=== PATIENT | male | born 1950 | race Caucasian/White ===

== ENCOUNTER 2017-03-14 14:51 | Inpatient (IN) | payer BC ==
[~2017-03-14] VITALS: Ht 175.3 cm; Wt 106.1 kg
[~2017-03-14 14:51] MED LIST: GLC500 PO; LISI20TA PO
[2017-03-14 16:18] LABS: BASO % 0.5 %; BASO ABS # 0.02 K/uL (0-0.2); COMPLETE YES; EOS % 2.5 %; HEMATOCRIT 45.1 % (42-52); LYMPH % 25.6 %; LYMPH ABS # 1.13 K/uL (1.2-3.4); MEAN CELL VOLUME 81.9 fL (80-100); MEAN CORPUSCULAR HEMOGLOBIN 29.2 pg (25-34); MEAN CORPUSCULAR HGB CONC 35.7 g/dl (32-36); MEAN PLATELET VOLUME 10.5 fL (7.4-10.4); NEUT % 59.4 %; PLATELET COUNT 200 K/uL (130-400); RED BLOOD COUNT 5.51 M/uL (4.7-6.1); WHITE BLOOD COUNT 4.42 K/uL (4.8-10.8)
--- NOTE | 2017-03-14 16:22 | EMERGENCY ROOM VISIT NOTE ---
History Report prepared by Demario: Zaynab Deleon Under the Supervision of: Dr. Raquel Fenton M.D. First contact with patient: 16:03 Chief Complaint: IRREGULAR HEARTBEAT Stated Complaint: HEART IS IREGULAR, TALKING/BREATHING DIFFICULT Nursing Triage Summary: triage note: reports being seen at [facility] told to come here to see a cardiology reports pt has been loosing weight without effort and has been dizzy History of Present Illness The patient is a 66 year old male who presents to the Emergency Room with complaints of an intermittent irregular heat beat starting 2 weeks BUMBOATER. The patient states that while he was at the [facility] theatre 2 weeks ago he was sitting and felt a "hollow" feeling in his chest and checked his fit bit and it said his heart rate was 130 bpm while he was resting. The patient states that the feeling passed but it has occurred intermittently throughout the last two weeks. He states that along with his irregular heart rate he has had more shortness of breath. He states that he has history of bronchitis and feels like he has bronchitis like symptoms of a cough. He states that he has also had shortness of breath that is worse with exertion. He states that yesterday he was able to do yard work but states he felt short of breath but he denies any feelings of heart palpations during the exertion. His states that while the patient was walking through the parking deck on flat surface, he was out of breath. The patient denies any history of smoking. He states that he takes Lisinopril and Zyrtec daily but denies any other medications daily. The patient states that when at [facility] today he was on the heart rate monitor his EKG was abnormal, which is when the patient was refereed to come to the ED for further examination. Source of History: patient, spouse/significant other () Onset: 2 weeks BUMBOATER Position: chest Timing: intermittent Associated Symptoms: + SOB Note: Associated symptoms: increased heart rate at rest. Review of Systems See HPI for pertinent positives & negatives. A total of 10 systems reviewed and were otherwise negative. Past Medical & Surgical Medical Problems: (1) Bronchitis (2) Hypertension (3) Pneumonia (4) Pulmonary embolism, bilateral Family History Cancer Diabetes mellitus Hypertension Social History Smoking Status: Never Smoker Marital Status: Housing Status: lives with significant other Occupation Status: employed Current/Historical Medications Scheduled Cetirizine (Zyrtec), 10 MG PO DAILY Glipizide (Glucotrol), 0.5 TAB PO BID Lisinopril/Hctz (Zestoretic 20MG/12.5MG), 1 TAB PO DAILY Metformin Hcl (Glucophage), 750 MG PO DAILY Warfarin Sod (Jantoven), DAILY Allergies Coded Allergies: POLLEN (Verified Allergy, Intermediate, ITCHY EYES, RUNNY NOSE, SNEEZING, 03/14/17) Avocado (Verified Adverse Reaction, Intermediate, GI UPSET, 03/14/17) Physical Exam Vital Signs Date Time Temp Pulse Resp B/P Pulse Ox O2 Delivery O2 Flow Rate FiO2 03/14/17 19:33 104 03/14/17 18:39 92 Room Air 03/14/17 18:39 76 20 153/80 92 Room Air 03/14/17 17:14 73 20 131/71 93 Room Air 03/14/17 16:24 79 03/14/17 15:25 37.1 86 18 148/84 91 Room Air Physical Exam Vital signs reviewed. General: Well-appearing obese male, noted to be borderline hypoxic on room air. HEENT: No scleral icterus, PERRLA, neck supple. Atraumatic. Cardiovascular: Regular rate and rhythm, no extra sounds. Pulmonary: Clear to auscultation bilaterally, normal work of breathing. Abdomen: Soft, nontender, nondistended, positive bowel sounds. Musculoskeletal: Atraumatic, no peripheral edema. Neurologic: Patient awake alert and oriented x 3, full strength in all 4 extremities. Cranial nerves 2 through 12 grossly intact. Skin: Warm, dry, no rash Medical Decision & Procedures ER Provider Diagnostic Interpretation: X-ray results as stated below per interpretation by me and the radiologist: CHEST ONE VIEW PORTABLE CLINICAL HISTORY: Tachycardia. Shortness of breath. COMPARISON STUDY: Chest radiograph May 14, 2015. FINDINGS: Lung volumes are normal. Lungs are clear. There is no pneumothorax or pleural effusion. Cardiomediastinal silhouette is stable. Pulmonary vascularity is normal. IMPRESSION: No acute cardiopulmonary findings. Electronically signed by: John Spicer M.D. 03/14/2017 4:35 PM Dictated Date/Time: 03/14/2017 4:[address] results as stated below per my review and radiologist interpretation: CT ANGIOGRAM OF THE CHEST CLINICAL HISTORY: Dyspnea. Atypical chest pain. COMPARISON STUDY: Chest x-ray dated 03/14/2017. TECHNIQUE: Following the IV administration of 112 cc of Optiray 320, CT angiogram of the chest was performed from the upper abdomen to the thoracic inlet utilizing the pulmonary embolus protocol. Images are reviewed in the axial, sagittal, and coronal planes. 3-D MIPS images are created and assessed. IV contrast was administered without complication. CT DOSE: 682.18 mGy.cm FINDINGS: Thyroid: Imaged portions of the thyroid gland are normal in size and attenuation. Thoracic aorta: The thoracic aorta is normal in caliber and demonstrates standard 3-vessel arch anatomy. No dissection is seen. Pulmonary vasculature: The pulmonary trunk is normal in caliber. There are filling defects consistent with pulmonary emboli identified within the distal right main pulmonary artery. Emboli extend into the right upper, right middle, and right lower lobar pulmonary branches, reaching segmental and subsegmental levels. Pulmonary and was also seen within the distal left main pulmonary artery. This extends into the left upper and left lower lobar pulmonary arteries into segmental and subsegmental branches. Heart: The heart is mildly enlarged and without pericardial effusion. There are scattered coronary artery calcifications. Lungs and pleural spaces: Evaluation of the lung parenchyma is modestly degraded by motion artifact. Mild centrilobular and paraseptal emphysematous changes are observed. The trachea and central airways are clear. There is no airspace consolidation or pleural effusion. Scattered calcified granulomas are observed. There is a 4 mm pleural-based nodule in the right lower lobe along the major fissure seen on image 141. A 3 mm right lower lobe nodule is identified on image #130. Mediastinum: There is no mediastinal lymphadenopathy. Kelly: Clear. Axillae: There is no axillary lymphadenopathy. Upper abdomen: A cyst is partially visualized in the upper pole of left kidney. There is a tiny hiatal hernia diverticula are noted in the partially imaged left colon. Skeletal structures: The skeletal structures are osteopenic. Degenerative change is seen in the shoulders and thoracic spine. No lytic or blastic bony lesions are seen. IMPRESSION: 1. Extensive bilateral pulmonary emboli as above. 2. Cardiomegaly and mild emphysema. 3. No airspace consolidation or pleural effusion is identified. 4. There are 2 nodules in the right lower lobe measuring up to 4 mm. These can be followed as per the Fleischner criteria if clinically warranted. See below. 5. Additional findings as above. Please refer to below summary of Fleischner criteria recommendations for follow-up of incidental CT nodules (Jermaine Ashton, Guidelines for management of small pulmonary nodules detected on CT scans: A statement from the Fleischner Society, Radiology 237: [phone].) SOLID NODULES Solitary nodule size: <6 mm * low risk patients: no follow-up needed * high risk patients: optional CT at 12 months Solitary nodule size: 6-8 mm * low risk patients: follow-up at 6-12 months, then consider further follow-up at 18-24 months * high risk patients: initial follow-up CT at 6-12 months and then at 18-24 months if no change Solitary nodule size: >8 mm * either low or high risk patients - consider follow-up CT at 3 months, and/or CT-PET, and/or biopsy Multiple nodules size: <6 mm * low risk patients: no routine follow-up * high risk patients: optional CT at 12 months Multiple nodules size: 6-8 mm * low risk patients: follow-up at 3-6 months, then consider further follow-up at 18-24 months * high risk patients: follow-up at 3-6 months, then at 18-24 months if no change Multiple nodules size: >8 mm * low risk patients: follow-up at 3-6 months, then consider further follow-up at 18-24 months * high risk patients: follow-up at 3-6 months, then at 18-24 months if no change Note: newly detected indeterminate nodule in persons 35 years of age or older. * low risk patients: minimal or absent history of smoking and/or other known risk factors * high risk patients: history of smoking or of other known risk factors (e.g. first degree relative with lung cancer, or exposure to asbestos, radon, uranium) * if a nodule up to 8 mm is partly solid or is ground glass further follow-up is required after 24 months to exclude possible slow growing adenocarcinoma (AIXA) SUBSOLID NODULES Solitary pure ground-glass nodule * nodule size <6 mm - no CT follow-up required * nodule size >=6 mm - follow-up CT at 6-12 months, then every 2 years until 5 years Solitary part-solid nodule * nodule size <6 mm - no CT follow-up required * nodule size >=6 mm - follow-up CT at 3-6 months. If unchanged, and solid component remains <6 mm, then annual follow-up for 5 years Multiple subsolid nodules * nodule size <6 mm - follow-up CT at 3-6 months, consider further follow-up at 2 and 4 years if stable * nodule size >=6 mm - follow-up CT at 3-6 months, subsequent management based on the most suspicious nodule(s) Electronically signed by: Singh Allen M.D. 03/14/2017 6:53 PM Dictated Date/Time: 03/14/2017 6:48 PM Laboratory Results Test 03/14/17 16:00 03/14/17 16:30 03/14/17 17:59 03/14/17 19:33 D-Dimer 1020 ug/L FEU (0-500) Estimated Average Glucose 341 mg/dl Hemoglobin A1c 13.5 % (4.5-5.6) Total Bilirubin 0.4 mg/dl (0.2-1) Direct Bilirubin 0.1 mg/dl (0-0.2) Aspartate Amino Transf (AST/SGOT) 16 U/L (15-37) Alanine Aminotransferase (ALT/SGPT) 32 U/L (12-78) Alkaline Phosphatase 105 U/L (45-117) Pro-B-Type Natriuretic Peptide 163 pg/ml (0-900) Total Protein 6.4 gm/dl (6.4-8.2) Albumin 3.3 gm/dl (3.4-5.0) Beta-Hydroxybutyric Acid 5.26 mg/dL (0.2-2.81) Hepatitis C Antibody Screen NEG (NEG) Bedside Troponin I 0.000 ng/ml (0-0.045) Arterial Blood pH 7.47 (7.35-7.45) Arterial Blood Partial Pressure CO2 34 mmHg (35-46) Arterial Blood Partial Pressure O2 69 mm/Hg (80-95) Arterial Blood HCO3 24 mmol/L (19-24) Arterial Blood Oxygen Saturation 92.9 % (90-95) Arterial Blood Base Excess 0.6 mEq/L (-9-1.8) Arterial Blood Gas Delivery ROOM AIR Laci Test POS (POS) Hexagonal Phase Confirmation Negative (Negative) Protein C Activity 80 % (70-180) Protein S Activity 89 % (70-150) Anti-Thrombin III Activity 104 % activity (80-120) Factor V Leiden Mutation see note Factor V Leiden Interpretation see note Factor V Leiden Reviewed By see note Prothrombin Gene Mutation see note Prothrombin Gene Mutation Comment see note Prothrombin Mutation Reviewed By see note Homocysteine 9.5 UMOL/L (<11.4) Pfok-gbzx-8-Glycoprotein I IgG Ab <9 SGU (<=20) Qavt-ihaf-0-Glycoprotein I IgA Ab <9 CLOTILDE (<=20) Nqpz-drzx-4-Glycoprotein I IgM Ab <9 SMU (<=20) Anti-Cardiolipin IgG Antibody <14 GPL (< = 14) Anti-Cardiolipin IgA Antibody <11 APL (< = 11) Anti-Cardiolipin IgM Antibody <12 MPL (< = 12) Laboratory results per my review. Medications Administered Medications (Trade) Dose Ordered Sig/Wang Route Start Time Stop Time Status Last Admin Dose Admin Sodium Chloride 1,000 ml @ 200 mls/hr Q5H STAT IV 03/14/17 16:52 03/14/17 21:03 DC 03/14/17 17:09 200 MLS/HR Sodium Chloride (Nss 1000ml) 1,000 ml @ 999 mls/hr Q1H1M STAT IV 03/14/17 16:52 03/14/17 17:52 DC 03/14/17 17:09 999 MLS/HR Insulin Human Regular (novoLIN-R U-100 PER UNIT) 10 units NOW STAT SC 03/14/17 16:53 03/14/17 16:54 DC 03/14/17 17:09 10 UNITS ECG Indication: palpitations Rate (beats per minute): 85 Rhythm: normal sinus Findings: nonspecific-ST abn (Inferior, lateral) ED Course 1607: Past medical records reviewed. The patient was evaluated in room B11B. A complete history and physical examination was performed. 1627: I discussed the case with Dr. Mitchell [facility]. He states that while the patient was examined earlier today that the patient had SVT at 180 bpm while resting and broke into sinus rhythm in front of him. He states that he sent the patient to the ED because he also had complains of chest discomfort. swelling of the extremities and low exercise shortness of breath. 1652: Ordered Sodium Chloride 1,000 ml @ 999 mls/hr IV, Sodium Chloride 1,000 ml @ 999 mls/hr IV. 1652: Ordered Insulin Human Regular 10 units SC. 1810: I reevaluated the patient and he was resting comfortably. 1904: I reevaluated the patient and he was in rapid atrial fibrillation. An additional EKG was ordered. 1912: Ordered Lopressor Iv 5 mg IV. 1930: I discussed the case with Dr. Cande DIAZ Hospitalist. He agreed to evaluate the patient for further management and care. Medical Decision The patient is a 66 year old male who presents to the ED with complaints of irregular heartbeat. Differentials include SVT, atrial fibrillation, ACS, metabolic abnormality, dehydration, pneumonia, PE, and CHF. This patient was evaluated and appeared to be in no significant distress. IV access was obtained and laboratory work was drawn. EKG was obtained and reveals a normal sinus rhythm with nonspecific ST changes. Laboratory work reveals negative cardiac enzymes, elevated d-dimer. Chest x-ray was obtained and is negative. CT scan of the chest was performed and is significant for bilateral PE. On telemetry the patient's rhythm seems to change periodically to a rapid atrial fibrillation that spontaneously converts. Patient was ordered metoprolol 5 mg IV. Patient is also found to have a markedly elevated blood sugar for which he was given 10 units of subcutaneous regular insulin. Given the multiple medical issues, he will be evaluated by the hospitalist service for admission and further management. Patient and his were informed of the findings/plan and agree. Consults Time Called: 1619 Consulting Physician: Dr. Stephen Lopez [facility] Returned Call: 1626 I discussed the case with Dr. Mitchell [place] [facility]. He states that while the patient was examined earlier today that the patient had SVT at 180 bpm while resting and broke into sinus rhythm in front of him. He states that he sent the patient to the ED because he also had complains of chest discomfort. swelling of the extremities and low exercise shortness of breath. Additional Consults: Time Called: 1900 Consulted Physician: Dr. Cande DIAZ Hospitalist Returned Call: 1930 Additional Comments: I discussed the case with Dr. Cande DIAZ Hospitalist. He agreed to evaluate the patient for further management and care. Impression Primary Impression: Bilateral pulmonary embolism Additional Impressions: Rapid atrial fibrillation Hyperglycemia Scribe Attestation The scribe's documentation has been prepared under my direction and personally reviewed by me in its entirety. I confirm that the note above accurately reflects all work, treatment, procedures, and medical decision making performed by me. Departure Information Dispostion Being Evaluated By Hospitalist Referrals Kimberly Vidal M.D. (PCP) Patient Instructions My [facility] Problem Qualifiers
--- NOTE | 2017-03-14 16:36 | DIAGNOSTIC IMAGING REPORT ---
CHEST ONE VIEW PORTABLE CLINICAL HISTORY: Tachycardia. Shortness of breath. COMPARISON STUDY: Chest radiograph May 14, 2015. FINDINGS: Lung volumes are normal. Lungs are clear. There is no pneumothorax or pleural effusion. Cardiomediastinal silhouette is stable. Pulmonary vascularity is normal. IMPRESSION: No acute cardiopulmonary findings. Electronically signed by: John Spicer M.D. 03/14/2017 4:35 PM Dictated Date/Time: 03/14/2017 4:26 PM
[2017-03-14 16:44] LABS: CALCIUM 8.5 mg/dl (8.5-10.1); CKMB/CK RATIO 1.8 (0-3.0); CREATININE 1.1 mg/dl (0.60-1.40); MAGNESIUM 1.9 mg/dl (1.8-2.4); POTASSIUM 3.9 mmol/L (3.5-5.1)
[2017-03-14] MEDS ORDERED: SODIUM CHLORIDE 0.9% 1000ML 1,000 ML IV STA ×2 (16:52)
[2017-03-14] MEDS ORDERED: NovoLIN-R INSULIN PER UNIT CHARGE SC STA (16:53)
[2017-03-14 16:54] LABS: BETA-HYDROXYBUTYRATE 5.26 mg/dL (0.2-2.81)
[2017-03-14 18:09] LABS: ALLEN TEST POS (POS); ARTERIAL BLD GAS O2 SATURATION 92.9 % (90-95); ARTERIAL BLOOD GAS BASE EXCESS 0.6 mEq/L (-9-1.8); ARTERIAL BLOOD GAS HCO3 24 mmol/L (19-24); ARTERIAL BLOOD GAS PO2 69 mm/Hg (80-95); ARTERIAL BLOOD GAS pH 7.47 (7.35-7.45); O2 ADMINISTRATION ROOM AIR
[2017-03-14] MEDS ORDERED: OPTIRAY 320 IV PRN (18:15)
--- NOTE | 2017-03-14 18:54 | DIAGNOSTIC IMAGING REPORT ---
CT ANGIOGRAM OF THE CHEST CLINICAL HISTORY: Dyspnea. Atypical chest pain. COMPARISON STUDY: Chest x-ray dated 03/14/2017. TECHNIQUE: Following the IV administration of 112 cc of Optiray 320, CT angiogram of the chest was performed from the upper abdomen to the thoracic inlet utilizing the pulmonary embolus protocol. Images are reviewed in the axial, sagittal, and coronal planes. 3-D MIPS images are created and assessed. IV contrast was administered without complication. CT DOSE: 682.18 mGy.cm FINDINGS: Thyroid: Imaged portions of the thyroid gland are normal in size and attenuation. Thoracic aorta: The thoracic aorta is normal in caliber and demonstrates standard 3-vessel arch anatomy. No dissection is seen. Pulmonary vasculature: The pulmonary trunk is normal in caliber. There are filling defects consistent with pulmonary emboli identified within the distal right main pulmonary artery. Emboli extend into the right upper, right middle, and right lower lobar pulmonary branches, reaching segmental and subsegmental levels. Pulmonary and was also seen within the distal left main pulmonary artery. This extends into the left upper and left lower lobar pulmonary arteries into segmental and subsegmental branches. Heart: The heart is mildly enlarged and without pericardial effusion. There are scattered coronary artery calcifications. Lungs and pleural spaces: Evaluation of the lung parenchyma is modestly degraded by motion artifact. Mild centrilobular and paraseptal emphysematous changes are observed. The trachea and central airways are clear. There is no airspace consolidation or pleural effusion. Scattered calcified granulomas are observed. There is a 4 mm pleural-based nodule in the right lower lobe along the major fissure seen on image 141. A 3 mm right lower lobe nodule is identified on image #130. Mediastinum: There is no mediastinal lymphadenopathy. Kelly: Clear. Axillae: There is no axillary lymphadenopathy. Upper abdomen: A cyst is partially visualized in the upper pole of left kidney. There is a tiny hiatal hernia diverticula are noted in the partially imaged left colon. Skeletal structures: The skeletal structures are osteopenic. Degenerative change is seen in the shoulders and thoracic spine. No lytic or blastic bony lesions are seen. IMPRESSION: 1. Extensive bilateral pulmonary emboli as above. 2. Cardiomegaly and mild emphysema. 3. No airspace consolidation or pleural effusion is identified. 4. There are 2 nodules in the right lower lobe measuring up to 4 mm. These can be followed as per the Fleischner criteria if clinically warranted. See below. 5. Additional findings as above. Please refer to below summary of Fleischner criteria recommendations for follow-up of incidental CT nodules (Jermaine Ashton, Guidelines for management of small pulmonary nodules detected on CT scans: A statement from the Fleischner Society, Radiology 237: [phone].) SOLID NODULES Solitary nodule size: <6 mm * low risk patients: no follow-up needed * high risk patients: optional CT at 12 months Solitary nodule size: 6-8 mm * low risk patients: follow-up at 6-12 months, then consider further follow-up at 18-24 months * high risk patients: initial follow-up CT at 6-12 months and then at 18-24 months if no change Solitary nodule size: >8 mm * either low or high risk patients - consider follow-up CT at 3 months, and/or CT-PET, and/or biopsy Multiple nodules size: <6 mm * low risk patients: no routine follow-up * high risk patients: optional CT at 12 months Multiple nodules size: 6-8 mm * low risk patients: follow-up at 3-6 months, then consider further follow-up at 18-24 months * high risk patients: follow-up at 3-6 months, then at 18-24 months if no change Multiple nodules size: >8 mm * low risk patients: follow-up at 3-6 months, then consider further follow-up at 18-24 months * high risk patients: follow-up at 3-6 months, then at 18-24 months if no change Note: newly detected indeterminate nodule in persons 35 years of age or older. * low risk patients: minimal or absent history of smoking and/or other known risk factors * high risk patients: history of smoking or of other known risk factors (e.g. first degree relative with lung cancer, or exposure to asbestos, radon, uranium) * if a nodule up to 8 mm is partly solid or is ground glass further follow-up is required after 24 months to exclude possible slow growing adenocarcinoma (AIXA) SUBSOLID NODULES Solitary pure ground-glass nodule * nodule size <6 mm - no CT follow-up required * nodule size >=6 mm - follow-up CT at 6-12 months, then every 2 years until 5 years Solitary part-solid nodule * nodule size <6 mm - no CT follow-up required * nodule size >=6 mm - follow-up CT at 3-6 months. If unchanged, and solid component remains <6 mm, then annual follow-up for 5 years Multiple subsolid nodules * nodule size <6 mm - follow-up CT at 3-6 months, consider further follow-up at 2 and 4 years if stable * nodule size >=6 mm - follow-up CT at 3-6 months, subsequent management based on the most suspicious nodule(s) Electronically signed by: Singh Allen M.D. 03/14/2017 6:53 PM Dictated Date/Time: 03/14/2017 6:48 PM
[2017-03-14] MEDS ORDERED: METOPROLOL TARTRATE 1 MG/ML VIAL IV STA (19:13)
[2017-03-14] MEDS ORDERED: METOPROLOL TARTRATE 1 MG/ML VIAL ONE (19:26)
[2017-03-14] MEDS ORDERED: LISI-787 PO (19:32)
[2017-03-14] MEDS ORDERED: IBUP-103 PO (19:32)
[2017-03-14] MEDS ORDERED: CETI10TA84 PO (19:32)
--- NOTE | 2017-03-14 19:44 | History and Physical ---
History & Physical Date & Time of Service: March 14, 2017 at 19:41 Chief Complaint: Heart Is Iregular, Talking/Breathing Difficult Primary Care Physician: Kimberly Vidal M.D. History of Present Illness Source: patient, spouse The patient is a 66 yo male who travelled to [facility] and returned 4 weeks ago without problems. He first became tachycardic at rest up to the 130's 2 weeks ago, and also began with SOB at that time. Since then, his symptoms of SOB and DEVRIES have worsened to the point that he is symptomatic with even a short walk. He has had no previous occurrences of increased heart rate or shortness of breath. He denies any leg cramping or swelling. Past Medical/Surgical History Medical Problems: (1) Bronchitis Status: Resolved (2) Hypertension Status: Chronic (3) Pneumonia Status: Resolved Family History Cancer Diabetes mellitus Hypertension Social History Smoking Status: Never Smoker Smokeless Tobacco Use: No Alcohol Use: none Drug Use: none Marital Status: Housing status: lives with family Occupational Status: employed Multi-Drug Resistant Organisms History of MDRO: No Allergies Coded Allergies: POLLEN (Verified Allergy, Intermediate, ITCHY EYES, RUNNY NOSE, SNEEZING, 03/14/17) Avocado (Verified Adverse Reaction, Intermediate, GI UPSET, 03/14/17) Home Medications Scheduled Cetirizine (Zyrtec), 10 MG PO DAILY Lisinopril/Hctz (Zestoretic 20MG/12.5MG), 1 TAB PO DAILY Scheduled PRN Ibuprofen Tab (Advil), 200-600 MG PO Q4H PRN for Pain Review of Systems Constitutional: No chills, No fatigue, No fever, No problem reported, No sweats , No weakness, No weight loss Eyes: No diplopia, No discharge, No eye pain, No problem reported, No redness, No worsening of vision ENT: No dental problems, No hearing loss, No nasal symptoms, No problem reported, No sore throat, No tinnitus, No trouble swallowing, No unusual epistaxis Respiratory: + dyspnea on exertion, + shortness of breath, No cough, No dyspnea at rest, No hemoptysis, No sputum, No wheezing Cardiovascular: + chest pain, + palpitations, No PND, No claudication, No edema , No orthopnea Abdomen: No GI bleeding, No constipation, No diarrhea, No nausea, No pain, No problem reported, No vomiting Musculoskeletal: No calf pain, No joint pain, No muscle pain, No problem reported, No swelling Genitourinary - Male: No dysuria, No hematuria, No impotence, No lesions, No penile discharge, No problem reported, No urinary frequency, No urinary hesitancy, No urinary incontinence, No urinary retention, No urinary urgency Neurologic: No balance problems, No memory loss, No numbness/tingling, No paralysis, No problem reported, No vertigo, No weakness Psychiatric: No anhedonism, No anxiety, No depression symptoms, No insomnia, No problem reported, No substance abuse Endocrine: No excessive thirst, No excessive urination, No fatigue, No problem reported Hematologic / Lymphatic: No abnormal bleeding/bruising, No clotting problems, No night sweats, No problem reported, No swollen lymph nodes Integumentary: No bleeding, No color change, No itch, No new/changing skin lesions, No problem reported, No rash Allergic / Immunologic: No environmental allergies, No food allergies, No frequent infections, No hives, No pet sensitivities, No poor healing, No problem reported, No prolonged convalescence, No seasonal allergies Physical Exam Vital Signs Date Time Temp Pulse Resp B/P Pulse Ox O2 Delivery O2 Flow Rate FiO2 03/14/17 19:33 104 03/14/17 18:39 92 Room Air 03/14/17 18:39 76 20 153/80 92 Room Air 03/14/17 17:14 73 20 131/71 93 Room Air 03/14/17 16:24 79 03/14/17 15:25 37.1 86 18 148/84 91 Room Air General Appearance: WD/WN, no apparent distress Head: normocephalic, atraumatic Eyes: normal inspection, PERRL, EOMI, sclerae normal ENT: normal ENT inspection, hearing grossly normal, TMs normal, pharynx normal Neck: supple, no adenopathy, thyroid normal, no JVD, no carotid bruits, trachea midline Respiratory/Chest: chest non-tender, lungs clear, normal breath sounds, no respiratory distress, no accessory muscle use Cardiovascular: regular rate, rhythm, no edema, no gallop, no JVD, no murmur, normal peripheral pulses Abdomen/GI: normal bowel sounds, non tender, soft, no organomegaly, no pulsatile mass Back: normal inspection, no CVA tenderness, no muscle spasm, normal range of motion Extremities/Musculoskelatal: normal inspection, no calf tenderness, normal capillary refill, no pedal edema, normal range of motion, + swelling (right calf approximately 1 1/2 larger in diameter than the left, both are nontender) Neurologic/Psych: 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 as tested, no motor/sensory deficits, alert, normal mood/affect, normal reflexes, oriented x 3 Skin: normal color, warm/dry, no rash Lymphatic: no adenopathy Diagnostics Laboratory Results Results Past 24 Hours Test 03/14/17 16:00 03/14/17 16:30 03/14/17 17:59 03/14/17 18:59 Range/Units White Blood Count 4.42 4.8-10.8 K/uL Red Blood Count 5.51 4.7-6.1 M/uL Hemoglobin 16.1 14.0-18.0 g/dL Hematocrit 45.1 42-52 % Mean Corpuscular Volume 81.9 80-100 fL Mean Corpuscular Hemoglobin 29.2 25-34 pg Mean Corpuscular Hemoglobin Concent 35.7 32-36 g/dl Platelet Count 200 130-400 K/uL Mean Platelet Volume 10.5 7.4-10.4 fL Neutrophils (%) (Auto) 59.4 % Lymphocytes (%) (Auto) 25.6 % Monocytes (%) (Auto) 12.0 % Eosinophils (%) (Auto) 2.5 % Basophils (%) (Auto) 0.5 % Neutrophils # (Auto) 2.63 1.4-6.5 K/uL Lymphocytes # (Auto) 1.13 1.2-3.4 K/uL Monocytes # (Auto) 0.53 0.11-0.59 K/uL Eosinophils # (Auto) 0.11 0-0.5 K/uL Basophils # (Auto) 0.02 0-0.2 K/uL RDW Standard Deviation 41.8 36.4-46.3 fL RDW Coefficient of Variation 14.0 11.5-14.5 % Immature Granulocyte % (Auto) 0.0 % Immature Granulocyte # (Auto) 0.00 0.00-0.02 K/uL D-Dimer 1020 0-500 ug/L FEU Sodium Level 134 136-145 mmol/L Potassium Level 3.9 3.5-5.1 mmol/L Chloride Level 100 98-107 mmol/L Carbon Dioxide Level 24 21-32 mmol/L Anion Gap 10.0 3-11 mmol/L Blood Urea Nitrogen 14 7-18 mg/dl Creatinine 1.10 0.60-1.40 mg/dl Est Creatinine Clear Calc Drug Dose 81.4 ml/min Estimated GFR () 81.8 Estimated GFR (Non- 70.6 BUN/Creatinine Ratio 13.0 10-20 Random Glucose 524 70-99 mg/dl Calcium Level 8.5 8.5-10.1 mg/dl Magnesium Level 1.9 1.8-2.4 mg/dl Total Bilirubin 0.4 0.2-1 mg/dl Direct Bilirubin 0.1 0-0.2 mg/dl Aspartate Amino Transf (AST/SGOT) 16 15-37 U/L Alanine Aminotransferase (ALT/SGPT) 32 12-78 U/L Alkaline Phosphatase 105 45-117 U/L Total Creatine Kinase 169 39-308 U/L Creatine Kinase MB 3.1 0.5-3.6 ng/ml Creatine Kinase MB Ratio 1.8 0-3.0 Pro-B-Type Natriuretic Peptide 163 0-900 pg/ml Total Protein 6.4 6.4-8.2 gm/dl Albumin 3.3 3.4-5.0 gm/dl Beta-Hydroxybutyric Acid 5.26 0.2-2.81 mg/dL Bedside Troponin I 0.000 0-0.045 ng/ml Arterial Blood pH 7.47 7.35-7.45 Arterial Blood Partial Pressure CO2 34 35-46 mmHg Arterial Blood Partial Pressure O2 69 80-95 mm/Hg Arterial Blood HCO3 24 19-24 mmol/L Arterial Blood Oxygen Saturation 92.9 90-95 % Arterial Blood Base Excess 0.6 -9-1.8 mEq/L Arterial Blood Gas Delivery ROOM AIR Laci Test POS POS Test 03/14/17 19:39 Range/Units Diagnostic Radiology Patient Name: ZOË LAN Unit Number: [id number] Dictated: 03/14/171625 Transcribed: 03/14/171625 JA Printed Date/Time: [~ rep prt dt]/[~ rep prt tm] [~ rep ct labl] - [~ rep ct ivnm] [facility] [place] [place] [address] Dictated: 03/14/17 1626 Transcribed: 03/14/17 1626 CORRINA Printed Date/Time: [~ rep prt dt]/[~ rep prt tm] [~ rep ct labl] - [~ rep ct ivnm] CHEST ONE VIEW PORTABLE CLINICAL HISTORY: Tachycardia. Shortness of breath. COMPARISON STUDY: Chest radiograph May 14, 2015. FINDINGS: Lung volumes are normal. Lungs are clear. There is no pneumothorax or pleural effusion. Cardiomediastinal silhouette is stable. Pulmonary vascularity is normal. IMPRESSION: No acute cardiopulmonary findings. Electronically signed by: John Spicer M.D. 03/14/2017 4:35 PM Dictated Date/Time: 03/14/2017 4:26 PM The status of this report is Signed. Draft = Not yet reviewed or approved by Radiologist. Signed = Reviewed and approved by Radiologist. <AttendingPhy></AttendingPhy> <FamilyPhy>Kimberly Vidal M.D.</FamilyPhy> < PrimaryPhy>Kimberly Vidal M.D.</PrimaryPhy> <UnitNumber>[id number]</UnitNumber > <VisitNumber>[id number]</VisitNumber> <PatientName>ZOË LAN</ PatientName> <DateOfBirth>1950</DateOfBirth> <Location>C.EDB</Location> < ServiceDate>03/14/17</ServiceDate> <MNE>ESINDI</MNE> <OrderingPhy>Raquel Fenton M.D.</OrderingPhy> <OrderingPhyMNE>f rep ord dr collado</OrderingPhyMNE> < DictatingPhyMNE>f rep dict dr collado</DictatingPhyMNE> <CCListMNE>f rep ct mne</ CCListMNE> <AdmittingPhyMNE>f pt admit dr collado</AdmittingPhyMNE> <AttendingPhyMNE >f pt attend dr collado</AttendingPhyMNE> <ConsultingPhyMNE>f pt consult dr collado</ConsultingPhyMNE> <FamilyPhyMNE>f pt fam dr collado</FamilyPhyMNE> <OtherPhyMNE>f pt other dr collado</OtherPhyMNE> < PrimaryPhyMNE>f pt prim care dr collado</PrimaryPhyMNE> <ReferringPhyMNE>f pt referring dr collado</ReferringPhyMNE> Patient Name: ZOË LAN Unit Number: [id number] Dictated: 03/14/171847 Transcribed: 03/14/171847 EV Printed Date/Time: [~ rep prt dt]/[~ rep prt tm] [~ rep ct labl] - [~ rep ct ivnm] [facility] Radiology Department [place], [place] [id number] Dictated: 03/14/171847 Transcribed: 03/14/171847 EV Printed Date/Time: [~ rep prt dt]/[~ rep prt tm] [~ rep ct labl] - [~ rep ct ivnm] CT ANGIOGRAM OF THE CHEST CLINICAL HISTORY: Dyspnea. Atypical chest pain. COMPARISON STUDY: Chest x-ray dated 03/14/2017. TECHNIQUE: Following the IV administration of 112 cc of Optiray 320, CT angiogram of the chest was performed from the upper abdomen to the thoracic inlet utilizing the pulmonary embolus protocol. Images are reviewed in the axial, sagittal, and coronal planes. 3-D MIPS images are created and assessed. IV contrast was administered without complication. CT DOSE: 682.18 mGy.cm FINDINGS: Thyroid: Imaged portions of the thyroid gland are normal in size and attenuation. Thoracic aorta: The thoracic aorta is normal in caliber and demonstrates standard 3-vessel arch anatomy. No dissection is seen. Pulmonary vasculature: The pulmonary trunk is normal in caliber. There are filling defects consistent with pulmonary emboli identified within the distal right main pulmonary artery. Emboli extend into the right upper, right middle, and right lower lobar pulmonary branches, reaching segmental and subsegmental levels. Pulmonary and was also seen within the distal left main pulmonary artery. This extends into the left upper and left lower lobar pulmonary arteries into segmental and subsegmental branches. Heart: The heart is mildly enlarged and without pericardial effusion. There are scattered coronary artery calcifications. Lungs and pleural spaces: Evaluation of the lung parenchyma is modestly degraded by motion artifact. Mild centrilobular and paraseptal emphysematous changes are observed. The trachea and central airways are clear. There is no airspace consolidation or pleural effusion. Scattered calcified granulomas are observed. There is a 4 mm pleural-based nodule in the right lower lobe along the major fissure seen on image 141. A 3 mm right lower lobe nodule is identified on image #130. Mediastinum: There is no mediastinal lymphadenopathy. Kelly: Clear. Axillae: There is no axillary lymphadenopathy. Upper abdomen: A cyst is partially visualized in the upper pole of left kidney. There is a tiny hiatal hernia diverticula are noted in the partially imaged left colon. Skeletal structures: The skeletal structures are osteopenic. Degenerative change is seen in the shoulders and thoracic spine. No lytic or blastic bony lesions are seen. IMPRESSION: 1. Extensive bilateral pulmonary emboli as above. 2. Cardiomegaly and mild emphysema. 3. No airspace consolidation or pleural effusion is identified. 4. There are 2 nodules in the right lower lobe measuring up to 4 mm. These can be followed as per the Fleischner criteria if clinically warranted. See below. 5. Additional findings as above. Please refer to below summary of Fleischner criteria recommendations for follow-up of incidental CT nodules (Jermaine Ashton, Guidelines for management of small pulmonary nodules detected on CT scans: A statement from the Fleischner Society, Radiology 237: [phone].) SOLID NODULES Solitary nodule size: <6 mm * low risk patients: no follow-up needed * high risk patients: optional CT at 12 months Solitary nodule size: 6-8 mm * low risk patients: follow-up at 6-12 months, then consider further follow-up at 18-24 months * high risk patients: initial follow-up CT at 6-12 months and then at 18-24 months if no change Solitary nodule size: >8 mm * either low or high risk patients - consider follow-up CT at 3 months, and/or CT-PET, and/or biopsy Multiple nodules size: <6 mm * low risk patients: no routine follow-up * high risk patients: optional CT at 12 months Multiple nodules size: 6-8 mm * low risk patients: follow-up at 3-6 months, then consider further follow-up at 18-24 months * high risk patients: follow-up at 3-6 months, then at 18-24 months if no change Multiple nodules size: >8 mm * low risk patients: follow-up at 3-6 months, then consider further follow-up at 18-24 months * high risk patients: follow-up at 3-6 months, then at 18-24 months if no change Note: newly detected indeterminate nodule in persons 35 years of age or older. * low risk patients: minimal or absent history of smoking and/or other known risk factors * high risk patients: history of smoking or of other known risk factors (e.g. first degree relative with lung cancer, or exposure to asbestos, radon, uranium) * if a nodule up to 8 mm is partly solid or is ground glass further follow-up is required after 24 months to exclude possible slow growing adenocarcinoma (AIXA) SUBSOLID NODULES Solitary pure ground-glass nodule * nodule size <6 mm - no CT follow-up required * nodule size >=6 mm - follow-up CT at 6-12 months, then every 2 years until 5 years Solitary part-solid nodule * nodule size <6 mm - no CT follow-up required * nodule size >=6 mm - follow-up CT at 3-6 months. If unchanged, and solid component remains <6 mm, then annual follow-up for 5 years Multiple subsolid nodules * nodule size <6 mm - follow-up CT at 3-6 months, consider further follow-up at 2 and 4 years if stable * nodule size >=6 mm - follow-up CT at 3-6 months, subsequent management based on the most suspicious nodule(s) Electronically signed by: Singh Allen M.D. 03/14/2017 6:53 PM Dictated Date/Time: 03/14/2017 6:48 PM The status of this report is Signed. Draft = Not yet reviewed or approved by Radiologist. Signed = Reviewed and approved by Radiologist. <AttendingPhy></AttendingPhy> <FamilyPhy>Kimberly Vidal M.D.</FamilyPhy> < PrimaryPhy>Kimberly Vidal M.D.</PrimaryPhy> <UnitNumber>[id number]</UnitNumber > <VisitNumber>[id number]</VisitNumber> <PatientName>ZOË LAN</ PatientName> <DateOfBirth>1950</DateOfBirth> <Location>C.EDB</Location> < ServiceDate>03/14/17</ServiceDate> <MNE>ESINDI</MNE> <OrderingPhy>Raquel Fenton M.D.</OrderingPhy> <OrderingPhyMNE>f rep ord dr collado</OrderingPhyMNE> < DictatingPhyMNE>f rep dict dr collado</DictatingPhyMNE> <CCListMNE>f rep ct [facility]</ CCListMNE> <AdmittingPhyMNE>f pt admit dr collado</AdmittingPhyMNE> <AttendingPhyMNE >f pt attend dr collado</AttendingPhyMNE> <ConsultingPhyMNE>f pt consult dr collado</ConsultingPhyMNE> <FamilyPhyMNE>f pt fam dr collado</FamilyPhyMNE> <OtherPhyMNE>f pt other dr collado</OtherPhyMNE> < PrimaryPhyMNE>f pt prim care dr collado</PrimaryPhyMNE> <ReferringPhyMNE>f pt referring dr collado</ReferringPhyMNE> EKG EKG shows normal sinus rhythm at 85 bpm, nonspecific ST-T changes. Impression Assessment and Plan Extensive lateral pulmonary emboli--the patient will be admitted to the telemetry unit, for serial cardiac enzymes, cardiac rhythm monitoring and echocardiogram with Dopplers to assess for right heart strain. He'll be started on Lovenox 1 mg / kilogram subcutaneous every 12 hours. We will order bilateral lower extremity venous Dopplers to assess for possible DVT. At present, his right calf is significantly enlarged but nontender. Diabetes mellitus--his blood sugar is much higher than usual at 524. Hold metformin 500 mg by mouth daily. We'll check a hemoglobin A1c. He reports that he had been doing significantly better while on time by watching his diet closely. His blood sugar did improve to 286 following administration of 10 units of IV regular insulin per the ED physician. Hemoglobin A1c value will tell us if this is a stress response or more persistent elevation. We'll place him on Accu-Cheks before meals and at bedtime with NovoLog coverage for scale. Hypertension--hold HCTZ 12.5 mg by mouth daily. Continue lisinopril 20 mg by mouth daily. Level of Care Telemetry Advanced Directives Existing Advance Directive: No Existing Living Will: No Existing Power of Can Patcher: No Resuscitation Status FULL RESUSCITATION VTE Prophylaxis VTE Risk Assessment Done? Y/N: Yes Risk Level: High Given or contraindicated: Enoxaparin (Lovenox)SQ (therapeutic Lovenox, 1 mg/kg subcutaneous every 12 hours.) Social Service Consult None Apply
[2017-03-14] MEDS ORDERED: GLUCOSE 10 TABS/TUBE PO PRN (19:45)
[2017-03-14] MEDS ORDERED: MoRPHine SULFATE 2 MG/ML CARP IV PRN (19:45)
[2017-03-14] MEDS ORDERED: ENOXAPARIN 1 MG/KG SQ SCH (19:45)
[2017-03-14] MEDS ORDERED: TRAMADOL HCL 50 MG TAB PO PRN ×2 (19:45)
[2017-03-14] MEDS ORDERED: GLUCOSE 40% GEL 15 GM TUBE PO PRN (19:45)
[2017-03-14] MEDS ORDERED: GLUCAGON FOR INJ 1 MG VIAL SQ PRN (19:45)
[2017-03-14] MEDS ORDERED: ONDANSETRON INJ 2 MG/ML 2 ML VIAL IV PRN (19:45)
[2017-03-14] MEDS ORDERED: ZOLPIDEM TARTRATE 5 MG TAB PO PRN (19:45)
[2017-03-14] MEDS ORDERED: MoRPHine SULFATE 4 MG/ML 1 ML CARP\\VIAL IV PRN (19:45)
[2017-03-14] MEDS ORDERED: DEXTROSE 50% 50 ML SYR IV PRN (19:45)
[2017-03-14] MEDS ORDERED: ACETAMINOPHEN 325 MG TAB PO PRN (19:45)
[2017-03-14] MEDS ORDERED: LEVALBUTEROL/IPRATROPIUM NEB INH SCH (21:00)
[2017-03-14] MEDS ORDERED: ENOXAPARIN 120 MG/0.8 ML SYR SQ STA (21:05)
[2017-03-14 21:11] VITALS: BP 142/86; TEMP 36.8; O2SAT 92; BMI 34.2
[2017-03-14] MEDS ORDERED: IPRATROPIUM BROMIDE NEB SOLN 0.02% 2.5 ML VIAL INH PRN (21:15)
[2017-03-14] MEDS ORDERED: LEVALBUTEROL 1.25MG/0.5ML NEB INH PRN (21:15)
[2017-03-14 21:19] LABS: PROTHROMBIN TIME (PATIENT) 10.6 SECONDS (9.0-12.0)
[2017-03-14] MEDS: METOPROLOL TARTRATE 50 MG TAB PO SCH (21:59)
[2017-03-14] MEDS: INSULIN ASPART 100 UNITS/ML 3 ML PEN SC SCH (22:04)
[2017-03-14 23:47] VITALS: BP 115/73; PULSE 53; TEMP 37; O2SAT 94
[2017-03-15] VITALS (9 sets, daily range): BP systolic 122–145; BP diastolic 70–77; PULSE 54–70; TEMP 36.3–36.8; O2SAT 91–94; Ht 175.3 cm; Wt 106.1 kg
[2017-03-15] MEDS: LEVALBUTEROL 1.25MG/0.5ML NEB INH SCH ×3 (02:10→14:20)
[2017-03-15] MEDS: IPRATROPIUM BROMIDE NEB SOLN 0.02% 2.5 ML VIAL INH SCH ×3 (02:10→14:20)
[2017-03-15 03:57] LABS: BASO % 0.4 %; BASO ABS # 0.02 K/uL (0-0.2); COMPLETE YES; EOS % 2.9 %; HEMATOCRIT 43.5 % (42-52); IG% 0.2 %; LYMPH % 35.8 %; LYMPH ABS # 1.71 K/uL (1.2-3.4); MEAN CELL VOLUME 81.6 fL (80-100); MEAN CORPUSCULAR HEMOGLOBIN 28.5 pg (25-34); MEAN CORPUSCULAR HGB CONC 34.9 g/dl (32-36); MONO % 7.8 %; NEUT % 52.9 %; PLATELET COUNT 186 K/uL (130-400); RED BLOOD COUNT 5.33 M/uL (4.7-6.1); WHITE BLOOD COUNT 4.77 K/uL (4.8-10.8)
[2017-03-15 04:06] LABS: PARTIAL THROMBOPLASTIN RATIO 1.1
[2017-03-15 04:26] LABS: BUN/CREATININE RATIO 12.2 (10-20); CALCIUM 8.3 mg/dl (8.5-10.1); CKMB/CK RATIO 1.6 (0-3.0); CREATININE 0.82 mg/dl (0.60-1.40); POTASSIUM 3.6 mmol/L (3.5-5.1)
[2017-03-15 06:25] LABS: ESTIMATED AVERAGE GLUCOSE 341 mg/dl; HA1C FLAG Normal (Normal)
--- NOTE | 2017-03-15 06:43 | DIAGNOSTIC IMAGING REPORT ---
ULTRASOUND VENOUS DOPPLER LWR EXT BILA CLINICAL HISTORY: Pulmonary embolism COMPARISON STUDY: No previous studies for comparison. FINDINGS: Real-time and color flow Doppler imaging were performed. Flow was seen within the femoral, popliteal and calf veins with no intraluminal thrombus demonstrated. The saphenous vein is patent. IMPRESSION: No evidence of lower extremity DVT. Electronically signed by: Cedric Garcia M.D. 03/15/2017 6:42 AM Dictated Date/Time: 03/15/2017 6:41 AM
[2017-03-15] MEDS ORDERED: PNEUMOCOCCAL POLYSACCHARIDES 25 MCG/0.5 ML VIAL/SYR IM. ONE (08:00)
[2017-03-15] MEDS ORDERED: PNEUMOCOCCAL ADMINISTRATION CHARGE ONE (08:00)
[2017-03-15] MEDS: METOPROLOL TARTRATE 50 MG TAB PO SCH (08:11)
[2017-03-15] MEDS: INSULIN ASPART 100 UNITS/ML 3 ML PEN SC SCH ×2 (08:14→11:56)
[2017-03-15] MEDS ORDERED: ENOXAPARIN 120 MG/0.8 ML SYR SQ SCH (09:00)
[2017-03-15] MEDS ORDERED: CETIRIZINE HCL 10 MG TAB PO SCH (09:00)
[2017-03-15 12:34] LABS: CKMB/CK RATIO 1.9 (0-3.0)
[2017-03-15] MEDS ORDERED: GLC/500 PO (14:18)
[2017-03-15] MEDS ORDERED: GLIP5TAB11 PO (14:18)
[2017-03-15] MEDS ORDERED: CMD5 PO (14:18)
[2017-03-15] MEDS ORDERED: LVNIS120 SQ (14:18)
--- NOTE | 2017-03-15 14:25 | Discharge Instructions ---
Discharge Instructions Date of Service March 15, 2017. Admission Reason for Admission: Pulmonary Embolism, Bilateral VTE Date & Time Date of VTE Diagnosis: March 14, 2017 Time of VTE Diagnosis: 18:48 Discharge Goals Goal(s): Decrease discomfort, Improve function, Increase independence Activity Recommendations Activity Limitations: resume your previous activity . Instructions / Follow-Up Instructions / Follow-Up You were admitted with tachycardia and difficult breathing which were concerning for pulmonary Embolism Which Was Confirmed on the Chest CT. You were also found to have high blood sugars. Recommendations: Pulmonary embolism: - Chest CT scan revealed extensive pulmonary embolism -You are recommended to use a blood thinner to prevent new clot formation for about 3-6 months - Please use Lovenox injections twice daily along with 5 mg of Coumadin and monitor your INR . We will set you up with Coumadin clinic to do so. once your INR is >2 . we can switch you over to Coumadin only. - Be consistent with eating green leafy vegetables as it could potentially interfere with metabolism of warfarin High blood sugar: - Your Hba1c was 13.9 - Use metformin 500 mg twice daily and glipizide 5 mg twice daily - Monitor you blood sugar with your glucometer and keep a log - Follow up with Dr. Vidal to adjust dosages Please follow up with Dr. Vidal on March 22 at 11.40 AM Medication Instructions: * Warfarin is a medicine prescribed to prevent blood clots * Warfarin will thin your blood and help prevent new clots * Take your medications exactly as directed * Never skip a dose. Never take a double dose. If you miss a dose, take it as soon as you remember * It is important for your doctor to monitor your prothrombin time (PT). This is a lab test * Keep your appointment for lab tests Risk of Adverse Drug Reactions and Interactions: * Warfarin increases your risk of bleeding * The food you eat and other medications you take can affect how Warfarin works in your body * Ask your doctor about daily aspirin therapy * It is very important to talk with your doctor about all of the other medicines , antibiotics, vitamins or herbal products that you are taking * All of your medication must be approved by your doctor, including new medicines, as well as medicines you have taken before you started taking Warfarin Diet: * In order for Warfarin to work properly, it is important to keep your intake of Vitamin K as consistent as possible * You should avoid any sudden change in Vitamin K intake * Report any significant changes in your diet or weight to your doctor Call your Primary Care doctor if you experience any of the following: * Swelling or Pain in your leg * Sudden, continuous pain deep in a muscle * Pain that worsens when you are active or when you stand still for a long time * Chest Pain * Sudden Shortness of Breath * Rapid or pounding heart beat * Fainting * Dizziness * Cough with blood or bloody sputum * Sweating more than normal * Bruises * Heavy or uncontrolled bleeding * Blood in your urine, stool or vomit * Black or tarry stools Caring for Your Self at Home: * Avoid sitting, standing or lying down for long periods without moving your legs and feet * When traveling by car, stop to get out and move around at least once every 3 hours * On long airplane, train or bus rides, get up and move around when possible * If you can't get up, wiggle your toes and tighten your calves to keep your blood moving Follow Up: It is important for you to keep your follow up appointments with your medical provider. Current Hospital Diet Patient's current hospital diet: AHA Diet (Heart Healthy), Diabetes Type 2 Diet Discharge Diet Recommended Diet: Diabetes Type 2 Diet Pending Studies Studies pending at discharge: yes List of pending studies: Anticardiolipin antibodies, lupus anticoagulant, homocystine, beta-2 microglobulin, protein C and protein S, factor V Leiden mutation, prothrombin gene Laboratory Results Hemoglobin A1c Test 03/14/17 16:00 Range/Units Estimated Average Glucose 341 mg/dl Hemoglobin A1c 13.5 H 4.5-5.6 % Medical Emergencies . Who to Call and When: Medical Emergencies: If at any time you feel your situation is an emergency, please call 911 immediately. . Non-Emergent Contact Non-Emergency issues call your: Primary Care Provider . . "Provider Documentation" section prepared by Emma Cannon. . VTE Core Measure Inpt VTE Proph given/why not?: Enoxaparin (Lovenox)SQ (therapeutic Lovenox, 1 mg/kg subcutaneous every 12 hours.) Reason no anticoag overlap I/P: Treatment provided - N/A Reason no anticoag overlap @DC: Treatment provided - N/A
--- NOTE | 2017-03-15 15:37 | Discharge Summary ---
Discharge Summary Date of Service March 15, 2017. (Emma Cannon MD) Discharge Summary Admission Date: March 14, 2017 at 19:39 Discharge Date: March 15, 2017 Discharge Disposition: Home Principal Diagnosis: pulmonary embolism Problems/Secondary Diagnoses: Hyperglycemia (Emma Cannon MD) Medication Reconciliation New Medications: Glipizide (Glucotrol) 5 Mg Tab 1 TAB PO BID for 30 Days, #60 TAB 3 Refills Metformin Hcl (Glucophage) 500 Mg Tab 500 MG PO BID for 30 Days, #60 TAB Warfarin Sod (Coumadin) 5 Mg Tab 5 MG PO DAILY for 30 Days Enoxaparin (Lovenox) 120 Mg/0.8 Ml Inj 111 MG SQ Q12 for 7 Days Continued Medications: Cetirizine (Zyrtec) 10 Mg Tab 10 MG PO DAILY, TAB Lisinopril/Hctz (Zestoretic 20MG/12.5MG) Tab 1 TAB PO DAILY, TAB Discontinued Medications: Ibuprofen Tab (Advil) 200 Mg Tab 200-600 MG PO Q4H PRN for Pain, TAB Discharge Exam Doing better. Dyspnea is improved . Denies any chest pain, palpitations, dizziness, shortness of breath, fevers or chills Review of Systems: Constitutional: No chills, No fever Eyes: No worsening of vision ENT: No hearing loss Respiratory: No cough, No dyspnea at rest, No dyspnea on exertion, No shortness of breath, No sputum Cardiovascular: No chest pain Abdomen: No nausea, No pain, No vomiting Musculoskeletal: No joint pain Genitourinary - Male: No dysuria, No hematuria Neurologic: No memory loss Psychiatric: No depression symptoms Hematologic / Lymphatic: No abnormal bleeding/bruising Physical Exam: General Appearance: WD/WN, no apparent distress Eyes: normal inspection ENT: normal ENT inspection, hearing grossly normal Neck: supple, no adenopathy Respiratory/Chest: chest non-tender, lungs clear, normal breath sounds, no respiratory distress, no accessory muscle use Cardiovascular: regular rate, rhythm Abdomen / GI: normal bowel sounds, non tender, soft, no organomegaly Extremities: normal inspection, no calf tenderness, no pedal edema, normal range of motion Neurologic/Psychiatric: alert, normal reflexes, oriented x 3 Skin: normal color (Emma Cannon MD) Review of Systems: Constitutional: No fever Respiratory: No shortness of breath Cardiovascular: No chest pain Abdomen: No pain Physical Exam: General Appearance: no apparent distress Respiratory/Chest: lungs clear, no respiratory distress Cardiovascular: regular rate, rhythm Abdomen / GI: normal bowel sounds, non tender, soft Neurologic/Psychiatric: alert, oriented x 3 Skin: warm/dry (Kimberly Vidal M.D.) Hospital Course The patient is a 66 yo male who travelled to [facility] and returned 4 weeks ago without problems. He first became tachycardic at rest up to the 130's 2 weeks ago, and also began with SOB at that time. Since then, his symptoms of SOB and DEVRIES have worsened to the point that he is symptomatic with even a short walk. He has had no previous occurrences of increased heart rate or shortness of breath. He denies any leg cramping or swelling. Extensive lateral pulmonary emboli: Provoked CT scan had revealed extensive lateral pulmonary emboli, Dopplers of the lower extremities were obtained which were negative for DVT. He was started on Lovenox subcutaneous twice daily. He was discharged on Lovenox bridge to Coumadin he will receive 110 mg of Lovenox twice daily for about a week along with 5 mg of Coumadin. He is to follow-up at [facility] clinic to check INR on after which he'll be set up with the Coumadin clinic. -Hypercoagulable workup is currently pending Type 2 diabetes: Was previously diet controlled. Blood sugar on presentation was 524, hemoglobin A1c was 13.9 - Discharged home on metformin 500 mg twice a day and glipizide 5 mg twice a day. - Diabetes education and counseling - Diabetic supplies ordered Hypertension: Continue hydrochlorothiazide/lisinopril Follow-up with Dr. Vidal on March 22 as scheduled Total Time Spent: Greater than 30 minutes This includes examination of the patient, discharge planning, medication reconciliation, and communication with other providers. (Emma Cannon MD) I have reviewed the medical record and performed a history and physical examination of this patient today. I have discussed the case with Dr. Cannon. The above note reflects my findings, conclusions, and recommendations. Total Time Spent: Greater than 30 minutes (40) (Kimberly Vidal M.D.) Discharge Instructions Please refer to the electronic Patient Visit Report (Discharge Instructions) for additional information. (Emma Cannon MD) Follow-Up Follow-up with Dr. Vidal on March 22 at 1140 (Emma Cannon MD) Additional Copies To Kimberly Vidal M.D. Resident Tracking Resident Involvement: Resident Care Provided Care Provided: Adult Hospital Medicine (Emma Cannon MD)
[2017-03-15] MEDS ORDERED: WARFARIN SOD 10 MG TAB PO ONE (15:45)
[2017-03-20 11:35] LABS: ANTITHROMBINIII ACTIVITY** 104 % activity (80-120); B2 GLYCOPROTEIN IGA <9 SAU (<=20); B2 GLYCOPROTEIN IGG <9 SGU (<=20); B2 GLYCOPROTEIN IGM <9 SMU (<=20); LUPUS ANTICOAGULANT** TC36573X Negative (Negative); PROTEIN C ACTIVITY** TC 1777X 80 % (70-180); PROTEIN S ACT(FUNCT)**1779X 89 % (70-150)
[2017-03-28] MEDS ORDERED: GLC/500 PO (14:22)
[2017-03-28] MEDS ORDERED: GLIP5TAB11 PO (14:22)
[2017-03-28] MEDS ORDERED: WARF5TAB7 PO (14:22)
[2017-04-01] MEDS ORDERED: WARF5TAB7 PO (13:21)
== END 2017-03-15 16:19 | disposition home or self-care (01) | DRG 176 ==
LOC: ENRESERVDT → ENRESERVTM → C.EDB 14:52 → C.2T 19:39
PROVIDERS: ADMIT Hospitalist; ATTEND Family Medicine
DX: I26.99 Other pulmonary embolism without acute cor pulmonale (principal); E11.65 Type 2 diabetes mellitus with hyperglycemia; I10 Essential (primary) hypertension; Z23 Encounter for immunization; Z79.84 Long term (current) use of oral hypoglycemic drugs; Z79.899 Other long term (current) drug therapy

== ENCOUNTER 2020-10-16 05:14 | Inpatient (IN) ==
--- NOTE | 2020-09-18 09:37 | PAT Medication Instructions ---
Medication Instructions Date of Service September 18, 2020 Home Medications aspirin [Aspir-81] 81 mg PO QAM cetirizine [Zyrtec] 10 mg PO QAM jqdtivnbwrp-mvq-nuwsxgeam-vitC [Glucosamine Complex-MSM] 1 cap PO BID lisinopril-hydrochlorothiazide 1 tab PO QAM metformin 850 mg PO BID ASK your prescriber and surgeon aspirin [Aspir-81] 81 mg PO QAM STOP taking 2 weeks before surgery (or as soon as possible if surgery is within 2 weeks) kmhoqhpapjx-eoc-kqvjancye-vitC [Glucosamine Complex-MSM] 1 cap PO BID DO NOT take the morning of surgery cetirizine [Zyrtec] 10 mg PO QAM lisinopril-hydrochlorothiazide 1 tab PO QAM metformin 850 mg PO BID Take evening before surgery metformin 850 mg PO BID Other Notes If you have any questions please call us at [phone] or [phone] or [phone] or [phone]
--- NOTE | 2020-09-19 14:13 | Anesthesiology Consultation ---
Date of Service September 19, 2020 Assessment & Plan (1) Encounter for pre-operative examination: - Per assessment on 09/19: Travel screen negative. No known COVID-19 positive contacts or current COVID-19 related symptoms. Surgeon arranging preop COVID testing (scheduled 10/10; JOSIAH). Awaiting results. - PCP note: 08/31/20: medically cleared for surgery. - Check [facility] AM DOS Chart Review Chart Review: Acceptable Risk for Surgery and Patient seen in Pre Admission Testing Teaching & Discussion Pre-Anesthesia Teaching/Discussion Notes: Instructed NPO after midnight before surgery,except medications with 15 cc of water. Medication instructions provided according to the PAT guidelines. History Surgery Operation Date: 10/16/20 08:15 Proposed Procedures p Left Total Shoulder Arthroplasty - Ziggy Berry MD Height/Weight Height: 5 ft 8.5 in Weight: 102.8 kg Allergies Allergy/AdvReac Type Severity Reaction Status Date / Time pollen extracts Allergy Intermediate itchy Verified 09/18/20 09:35 eyes, runny nose, sneezing avocado AdvReac Intermediate GI upset Verified 09/18/20 09:35 Medications Home Medications Medication Instructions Recorded Confirmed Last Taken aspirin [Aspir-81] 81 mg PO QAM 09/03/20 09/03/20 Unknown cetirizine [Zyrtec] 10 mg PO QAM 09/03/20 09/03/20 Unknown eynsuqaluod-rwa-vyqidobpt-vitC 1 cap PO BID 09/03/20 09/03/20 Unknown [Glucosamine Complex-MSM] lisinopril-hydrochlorothiazide 1 tab PO QAM 09/03/20 09/03/20 Unknown metformin 850 mg PO BID 09/03/20 09/03/20 Unknown Past Medical History Medical History Arthritis Diabetes mellitus, type 2 NIDDM Dvt femoral (deep venous thrombosis) RLE (2017) after flight, previously on AC/since discontinued Hypertension Obesity Pulmonary embolism (2017) after flight, previously on AC/since discontinued Exercise / Class Metabolic Activity II 4-5 Yardwork/Stairs/Walk up hill (one flight of stairs (no chest pain/no sob)) Past Family History Family History Father Family history of diabetes mellitus Past Surgical History Surgical History History of colonoscopy History of knee surgery right tendon repair History of tooth extraction WTE Past Anesthesia History No Hx of Anesthesia Complications and No Family Hx of Anesthesia Complications History of PONV No Hx of PONV and No Hx of Motion Sickness Social History Smoking Status: Never smoker Do You Dip or Chew Tobacco: No Hx Alcohol Use: Yes Alcohol type: beer alcohol intake frequency: a few times a week Hx Substance Use: No Review of Systems Patient denies chest pain, shortness of breath, dyspnea on exertion, fever, chil ls, cough, wheezing, palpitations. Physical Exam Vital Signs VITALS BP 122/68 P 66 TEMP 98.7 SP02 96%RA RESP 16 PHYSICAL Full neck and c-spine range of motion. Full TMJ range of motion. TMD 3 finger breaths Mallampati Score 3 Lungs: clear throughout to auscultation Cardiac: regular rate and rhythm, no murmurs noted Spine: normal Carotid arteries: negative bruit Extremities: no edema + large [place] (advised to trim/shorten- patient agreeable) Testing Laboratory Results 09/19/20 14:30 09/19/20 14:29 PT 10.8 Seconds (9.0-12.0) 09/19/20 14:30 INR 1.0 (0.9-1.1) 09/19/20 14:30 Hemoglobin A1c 6.1 % (4.5-5.6) H 09/19/20 14:30 Urine Color Yellow 09/19/20 14:30 Urine Appearance Clear (Clear) 09/19/20 14:30 Urine pH 7.0 (4.5-7.5) 09/19/20 14:30 Ur Specific [place] 1.011 (1.000-1.030) 09/19/20 14:30 Urine Protein Negative (Negative) 09/19/20 14:30 Urine Glucose (UA) Negative (Negative) 09/19/20 14:30 Urine Ketones Negative (Negative) 09/19/20 14:30 Urine Nitrite Negative (Negative) 09/19/20 14:30 Ur Leukocyte Esterase Negative (Negative) 09/19/20 14:30 Blood Type B Negative 09/19/20 14:30 Antibody Screen NEGATIVE 09/19/20 14:30 09/19/20 14:30 Urine Culture - Final Urine,Clean Catch No growth - less than 1,000 colonies/mL. Electrocardiogram Date: 09/19/20 SB at 56bpm. NS TWA.
[2020-09-19 15:22] LABS: Basophils # (auto) 0.02 K/uL (0-0.2); Basophils % (auto) 0.4 %; Eosinophils # (auto) 0.14 K/uL (0-0.5); Eosinophils % (auto) 2.8 %; Hematocrit (blood only) 43.4 % (42-52); Hemoglobin 14.5 g/dL (14.0-18.0); Lymphocytes # (auto) 1.39 K/uL (1.2-3.4); Lymphocytes % (auto) 27.9 %; Mean Corpuscular Hemoglobin 30.8 pg (25-34); Mean Corpuscular Hgb Conc 33.4 g/dL (32-36); Mean Corpuscular Volume 92.1 fL (80-100); Monocytes # (auto) 0.42 K/uL (0.11-0.59); Monocytes % (auto) 8.4 %; Neutrophils # (auto) 3.02 K/uL (1.4-6.5); Neutrophils % (auto) 60.5 %; Platelet Count 282 K/uL (130-400); RDW Coefficient of Variation 13.8 % (11.5-14.5); RDW Standard Deviation 46.6 fL (36.4-46.3); Red Blood Count 4.71 M/uL (4.7-6.1); White Blood Count 4.99 K/uL (4.8-10.8)
[2020-09-19 15:26] LABS: Appearance Urine Clear (Clear); Bilirubin Urine Negative (Negative); Blood Urine Negative (Negative); Color Urine Yellow; Glucose Urine UA Negative (Negative); Ketones Urine Negative (Negative); Leukocyte Esterase Urine Negative (Negative); Nitrite Urine Negative (Negative); Protein Urine Negative (Negative); Specific Gravity Urine 1.011 (1.000-1.030); Urobilinogen Urine Negative (Negative)
[2020-09-19 15:35] LABS: Prothrombin Time 10.8 Seconds (9.0-12.0)
[2020-09-19 16:01] LABS: BUN Creatinine Ratio 17.3 (10-20); Calcium 9.7 mg/dl (8.5-10.1); Creatinine Clr Calc Pharmacy 102.3 ml/min; Est GFR (African American) 105.8; Est GFR (Non-African American) 91.3; Potassium 4.3 mmol/L (3.5-5.1)
--- NOTE | 2020-09-19 16:42 | History & Physical Report ---
Date of Service September 19, 2020 Assessment & Plan Admission and Anticipated Discharge Date Admission Date: PRE-OP Diagnosis: Left shoulder osteoarthritis Planned Procedure: Left total shoulder arthroplasty Plan: Patient is scheduled to undergo this procedure with Dr. Ziggy Berry of [facility] on October 16, 2020. Risks and complications of the procedure such as: Infection, bleeding, pain, scarring, nerve blood vessel damage, weakness, wound problems, stiffness, incomplete relief of symptoms, tendon or ligament injury, blood clots, embolism, heart attack, stroke, , hardware loosening and dislocation were explained to the patient his visit today by Dr. Berry. Informed consent form the procedure was obtained. Patient also understands the risks of proceeding with surgical intervention during the COVID-19 pandemic. Currently he is asymptomatic and understands that he will be tested prior to his surgery. We have obtained preoperative medical clearance from the patient's primary care provider Dr. Vidal. Patient has appointment with anesthesia later this afternoon and while there we will obtain a CBC with differential, complete metabolic panel, PT/INR, blood type and screen, urinalysis, urine culture and sensitivity, EKG, hemoglobin A1c and a nasal culture for MRSA. During today's visit we discussed total shoulder procedure, went over discharge planning, talked about antibiotic use following total joint surgery. I also told over the [facility] offers lectures via Zoom in regards to joint replacement surgery and provided him with paperwork to obtain a handicap placard for his vehicle if necessary. I also provided him with an order for outpatient physical therapy that he will begin the Tuesday following surgery, most likely in our PT clinic. I advised him that he will be on Xarelto for DVT prophylaxis following surgery. I also advised him that I will prescribe a narcotic pain medication, and most likely an anti-inflammatory agent to use following surgery. Patient is scheduled for his 2-week postoperative follow-up with myself on October 31 at 1 PM. Patient verbalized understanding of all information provided during today's visit. He thanks for the care that he received. Patient states if he has questions or concerns prior to surgery, he will contact clinic. History of Present Illness Chief Complaint: Chief Complaint: Left shoulder pain Primary Care Provider: Kimberly Vidal MD History of Present Illness (including history relevant to procedure): This 70-year-old male presents the clinic today for his preoperative history and physical. Patient complains of left shoulder pain for at least 2 decades. He sa ys he saw an orthopedic surgeon 15 years ago who told him he might need a shoulder replacement but thought he was too young at that time. Pain is progressively worsened. He is now having problems with any overhead activities. Pain is localized to the left shoulder and is nonradiating. Patient is left- hand dominant Past Medical History: Problems: Pre-op exam Right knee DJD DM (diabetes mellitus), type 2 Osteoarthrosis, wrist Weight disorder Arthritis of left shoulder region Hypertensive disorder DVT Pulmonary embolism Procedure History Procedure Procedure Date Comments Primary repair of tendon - Patellar - 10yrs ago - Right Knee Hx of vasectomy Diabetic retinal eye exam 08/21/2018 - no diabetic retinopathy at t his timeNo treatment is necessary at this time. Just yearly monitoring for any changes Ultrasound venous doppler lower ext bilateral 03/14/2017 - no evidence of lower extremity DVT CT angiogram of the chest 03/14/2017 - 1. extensive bilateral pulmonary emboli as above2. cardiomegaly and mild emphysema3. no airspace consolidation or pleural effusion is identified4. there are 2 nodules in the right lower lobe measuring up to 4 mm. These can be followed as per the fleischner criteria if clinically warranted. see below5. additional findings as above Chest x-ray 03/14/2017 - no acute cardiopulmonary findings Colonoscopy 11/21/2015 - Non- bleeding internal hemorrhoids. Diverticulosis in the sigmoid colon. No specimens collected. Wrist X-ray 05/14/2015 - No acute Fracture or dislocation within the right wrist.Scapholunate disassociationDegenerative changes as decribed CXR - Chest X-ray 05/14/2015 - There is an acute right anterior 7th rib fracture. No definate additional Fracture are seen.Trace right pleural effusion and atelectasis. The lungs are otherwise clear Allergies and Sensitivities: avocados(nausea) Social history: Patient consumes approximately 1 alcoholic beverage per day. He denies tobacco or illicit drug use Family history: Cancer and diabetes Current Home Meds: (Last Updated 09/19 13:15) (aspirin 81 mg oral delayed release tablet) 81 mg PO Daily(ZyrTEC) 10 mg PO Dailyglucosamine (chondroitin- glucosamine 1.2 g-1.5 g oral capsule)lisinopril (hydroCHLOROthiazide-lisinopril 12.5 mg-10 mg oral tablet) TAKE 1 TABLET BY MOUTH EVERY DAY(metFORMIN 850 mg oral tablet) TAKE 1 TABLET BY MOUTH TWO TIMES DAILY Initial Wt: No Data Available Allergies Allergy/AdvReac Type Severity Reaction Status Date / Time pollen extracts Allergy Intermediate itchy Verified 09/18/20 09:35 eyes, runny nose, sneezing avocado AdvReac Intermediate GI upset Verified 09/18/20 09:35 Home Medications Home Medications Medication Instructions Recorded Confirmed Type aspirin [Aspir-81] 81 mg PO QAM 09/03/20 09/03/20 History cetirizine [Zyrtec] 10 mg PO QAM 09/03/20 09/03/20 History qhtfxkgblyt-emx-rqldebxud-vitC 1 cap PO BID 09/03/20 09/03/20 History [Glucosamine Complex-MSM] lisinopril-hydrochlorothiazide 1 tab PO QAM 09/03/20 09/03/20 History metformin 850 mg PO BID 09/03/20 09/03/20 History Past Med/Surg History Medical History Arthritis Diabetes mellitus, type 2 NIDDM Dvt femoral (deep venous thrombosis) RLE (2016) after flight, previously on AC/since discontinued Hypertension Obesity Pulmonary embolism (2016) after flight, previously on AC/since discontinued Surgical History History of colonoscopy History of knee surgery right tendon repair History of tooth extraction WTE Family History Father Family history of diabetes mellitus Social History Smoking Status: Never smoker Second Hand Exposure: Yes (FATHER SMOKED SOME); Do You Dip or Chew Tobacco: No; Hx Alcohol Use: Yes Alcohol type: beer Hx Substance Use: No Preferred Language: Korean Communication Ability: Effective Bottling Supervisor Required: No Beliefs That Will Affect Care: None Current Living Situation: Spouse Other Information That Helps Us Care for You: No Feels Safe at Home: Yes Safety Concerns: Feels Safe At This Time Assistive Devices: Glasses Review of Systems All systems reviewed & are unremarkable except as noted in Subjective Physical Exam Physical Exam: Physical Exam: (relevant to the procedure, including heart and lung evaluation) General: Alert and oriented x3 with proper grooming and hygiene Eyes: Pupils are equal and reactive to light with accommodation. Extract movements are intact Throat: Deferred due to COVID-19 precautions Cardiac: Regular rate and rhythm with no murmurs or gallops appreciated Lungs: Clear to auscultation throughout with no wheezing, rales or rhonchi Abdomen: Mildly obese, nondistended, nontender with normal active bowel sounds Extremities: Left shoulder exam showstenderness palpation along the posterior glenohumeral joint line.Active range of motion is limited to 0 degrees ofexternal rotation,110 degrees of forward elevation,and90 degrees of abduction.Rotator cuff strength is 5 out of 5 infra andsupraspinatus and subscapularis.Neurovascular intact. Neuro: Cranial nerves II through XII intact no motor or sensory deficit Skin: Normal in appearance no open skin areas of discharge Results & Data ([facility]) Laboratory Results 09/19/20 09/19/20 09/19/20 Range/Units 14:30 14:30 14:30 WBC (4.8-10.8) K/uL RBC (4.7-6.1) M/uL Hgb (14.0-18.0) g/dL Hct (42-52) % MCV (80-100) fL MCH (25-34) pg MCHC (32-36) g/dL RDW Std Deviation (36.4-46.3) fL RDW Coeff of Esvin (11.5-14.5) % Plt Count (130-400) K/uL MPV (7.4-10.4) fL Immature Gran % (Auto) % Neut % (Auto) % Lymph % (Auto) % [place] % (Auto) % Eos % (Auto) % Baso % (Auto) % Neut # (Auto) (1.4-6.5) K/uL Lymph # (Auto) (1.2-3.4) K/uL [place] # (Auto) (0.11-0.59) K/uL Eos # (Auto) (0-0.5) K/uL Baso # (Auto) (0-0.2) K/uL Immature Gran # (Auto) (0.00-0.02) K/uL PT (9.0-12.0) Seconds INR (0.9-1.1) Sodium (136-145) mmol/L Potassium (3.5-5.1) mmol/L Chloride (98-107) mmol/L Carbon Dioxide (21-32) mmol/L Anion Gap (3-11) BUN (7-18) mg/dl Creatinine (0.6-1.4) mg/dl Est Cr Clr Drug Dosing ml/min Est GFR ( Amer) Est GFR (Non-Af Amer) BUN/Creatinine Ratio (10-20) Glucose (70-99) mg/dl Estimat Average Glucose Pending Hemoglobin A1c Pending Calcium (8.5-10.1) mg/dl Urine Color Yellow Urine Appearance Clear (Clear) Urine pH 7.0 (4.5-7.5) Ur Specific [place] 1.011 (1.000-1.030) Urine Protein Negative (Negative) Urine Glucose (UA) Negative (Negative) Urine Ketones Negative (Negative) Urine Blood Negative (Negative) Urine Nitrite Negative (Negative) Urine Bilirubin Negative (Negative) Urine Urobilinogen Negative (Negative) Ur Leukocyte Esterase Negative (Negative) Nasal Screen MRSA (PCR) Negative (Negative) Blood Type Antibody Screen 09/19/20 09/19/20 09/19/20 Range/Units 14:30 14:30 14:30 WBC 4.99 (4.8-10.8) K/uL RBC 4.71 (4.7-6.1) M/uL Hgb 14.5 (14.0-18.0) g/dL Hct 43.4 (42-52) % MCV 92.1 (80-100) fL MCH 30.8 (25-34) pg MCHC 33.4 (32-36) g/dL RDW Std Deviation 46.6 H (36.4-46.3) fL RDW Coeff of Esvin 13.8 (11.5-14.5) % Plt Count 282 (130-400) K/uL MPV 10.0 (7.4-10.4) fL Immature Gran % (Auto) 0.0 % Neut % (Auto) 60.5 % Lymph % (Auto) 27.9 % [place] % (Auto) 8.4 % Eos % (Auto) 2.8 % Baso % (Auto) 0.4 % Neut # (Auto) 3.02 (1.4-6.5) K/uL Lymph # (Auto) 1.39 (1.2-3.4) K/uL [place] # (Auto) 0.42 (0.11-0.59) K/uL Eos # (Auto) 0.14 (0-0.5) K/uL Baso # (Auto) 0.02 (0-0.2) K/uL Immature Gran # (Auto) 0.00 (0.00-0.02) K/uL PT 10.8 (9.0-12.0) Seconds INR 1.0 (0.9-1.1) Sodium (136-145) mmol/L Potassium (3.5-5.1) mmol/L Chloride (98-107) mmol/L Carbon Dioxide (21-32) mmol/L Anion Gap (3-11) BUN (7-18) mg/dl Creatinine (0.6-1.4) mg/dl Est Cr Clr Drug Dosing ml/min Est GFR ( Amer) Est GFR (Non-Af Amer) BUN/Creatinine Ratio (10-20) Glucose (70-99) mg/dl Estimat Average Glucose Hemoglobin A1c Calcium (8.5-10.1) mg/dl Urine Color Urine Appearance (Clear) Urine pH (4.5-7.5) Ur Specific [place] (1.000-1.030) Urine Protein (Negative) Urine Glucose (UA) (Negative) Urine Ketones (Negative) Urine Blood (Negative) Urine Nitrite (Negative) Urine Bilirubin (Negative) Urine Urobilinogen (Negative) Ur Leukocyte Esterase (Negative) Nasal Screen MRSA (PCR) (Negative) Blood Type Pending Antibody Screen Pending 09/19/20 Range/Units 14:29 WBC (4.8-10.8) K/uL RBC (4.7-6.1) M/uL Hgb (14.0-18.0) g/dL Hct (42-52) % MCV (80-100) fL MCH (25-34) pg MCHC (32-36) g/dL RDW Std Deviation (36.4-46.3) fL RDW Coeff of Esvin (11.5-14.5) % Plt Count (130-400) K/uL MPV (7.4-10.4) fL Immature Gran % (Auto) % Neut % (Auto) % Lymph % (Auto) % [place] % (Auto) % Eos % (Auto) % Baso % (Auto) % Neut # (Auto) (1.4-6.5) K/uL Lymph # (Auto) (1.2-3.4) K/uL [place] # (Auto) (0.11-0.59) K/uL Eos # (Auto) (0-0.5) K/uL Baso # (Auto) (0-0.2) K/uL Immature Gran # (Auto) (0.00-0.02) K/uL PT (9.0-12.0) Seconds INR (0.9-1.1) Sodium 140 (136-145) mmol/L Potassium 4.3 (3.5-5.1) mmol/L Chloride 104 (98-107) mmol/L Carbon Dioxide 29 (21-32) mmol/L Anion Gap 7.0 (3-11) BUN 14 (7-18) mg/dl Creatinine 0.81 (0.6-1.4) mg/dl Est Cr Clr Drug Dosing 102.3 ml/min Est GFR ( Amer) 105.8 Est GFR (Non-Af Amer) 91.3 BUN/Creatinine Ratio 17.3 (10-20) Glucose 112 H (70-99) mg/dl Estimat Average Glucose Hemoglobin A1c Calcium 9.7 (8.5-10.1) mg/dl Urine Color Urine Appearance (Clear) Urine pH (4.5-7.5) Ur Specific [place] (1.000-1.030) Urine Protein (Negative) Urine Glucose (UA) (Negative) Urine Ketones (Negative) Urine Blood (Negative) Urine Nitrite (Negative) Urine Bilirubin (Negative) Urine Urobilinogen (Negative) Ur Leukocyte Esterase (Negative) Nasal Screen MRSA (PCR) (Negative) Blood Type Antibody Screen Diagnostic Findings Studies (relevant to the procedure): CT scan that was done on August 20, 2020 is reviewed. This demonstrates a large osteophyte off the humeral head inferiorly which was seen on his x-rays. There is no significant deformity of the glenoid. Advanced glenohumeral osteoarthritis is noted. No intra-articular loose bodies are also noted by the radiologist. On the sagittal films, there is no evidence for fatty infiltration of the cuff and no rotator cuff tears.
--- NOTE | 2020-09-19 18:26 | Electrocardiogram Report ---
Test Reason : Blood Pressure : / mmHG Vent. Rate : 056 BPM Atrial Rate : 056 BPM P-R Int : 162 ms QRS Dur : 100 ms QT Int : 414 ms P-R-T Axes : 051 072 020 degrees QTc Int : 399 ms Sinus bradycardia Otherwise normal ECG When compared with ECG of 15-MAR-2017 06:41, Nonspecific T wave abnormality now evident in Inferior leads QT has shortened Confirmed by Chema Zuniga ([id number]) on 09/19/2020 6:26:13 PM Referred By: Ziggy Berry Confirmed By:Jose Zuniga
[2020-09-20 05:53] LABS: Estimated Average Glucose 128 mg/dl; Hemoglobin A1C 6.1 % (4.5-5.6)
[2020-10-16] MEDS ORDERED: ceFAZolin 2000MG 2,000 MG/15 ML SYR IV SCH (06:00)
[2020-10-16] MEDS ORDERED: LR 15ML/HR IV SCH (06:00)
[2020-10-16] MEDS ORDERED: ROPIVACAINE 0.5% HCL/PF 150 MG, BUPIVACAINE 0.5% MPF 30 ML, EPINEPHrine 0.15 MG, Ketoro... INFIL SCH (06:00)
[2020-10-16] MEDS ORDERED: CeleBREX 200 MG CAP PO SCH (06:00)
[2020-10-16] MEDS ORDERED: METOCLOPRAMIDE HCL 10 MG TABLET PO SCH (06:00)
[2020-10-16] MEDS ORDERED: ACETAMINOPHEN 500 MG TAB PO SCH (06:00)
[2020-10-16] MEDS ORDERED: traMADol HCL 50 MG TABLET PO SCH (06:00)
[2020-10-16] MEDS ORDERED: TRANEXAMIC ACID 1,000 MG **IV Intra-op IV SCH (06:00)
[2020-10-16] MEDS ORDERED: LR 60ML/HR IV SCH (06:00)
[2020-10-16] MEDS ORDERED: TRANEXAMIC ACID 1,000 MG **IV Pre-op IV SCH (06:00)
[2020-10-16] MEDS ORDERED: FAMOTIDINE 20 MG TAB PO SCH (06:00)
[2020-10-16] MEDS ORDERED: ROPIVACAINE 0.5% 5 MG/ML 30 ML VIAL ONE (06:32)
[2020-10-16] MEDS ORDERED: MIDAZOLAM HCL 1 MG/ML 2ML VIAL ONE (07:05)
[2020-10-16] MEDS ORDERED: PROPOFOL IV EMULSION 10 MG/ML 20 ML VIAL IV ONE (07:05)
[2020-10-16] MEDS ORDERED: fentaNYL citrate 100 MCG/2 ML VIAL ONE (07:05)
[2020-10-16] MEDS ORDERED: LIDOCAINE HCL 2% 2 ML VIAL/AMP(20MG/ML) INFIL ONE (07:05)
[2020-10-16] MEDS ORDERED: ONDANSETRON INJ 2 MG/ML 2 ML VIAL ONE (07:06)
[2020-10-16] MEDS ORDERED: ROCURONIUM BROMIDE 10 MG/ML 5 ML VIAL IV ONE ×3 (07:06→09:56)
[2020-10-16] MEDS ORDERED: EPINEPHrine INJ 1 MG/ML AMP ONE (07:14)
[2020-10-16] MEDS ORDERED: BUPIVACAINE 0.25% 30 ML VIAL ONE (07:14)
--- NOTE | 2020-10-16 07:28 | History & Physical Bridge Note ---
Date of Service October 16, 2020 History & Physical Bridge Note I have examined the patient, reviewed the History & Physical and in the interval since the performance of the History & Physical I have noted the following changes of clinical significance: no changes noted
[2020-10-16] MEDS ORDERED: fentaNYL citrate 100 MCG/2 ML VIAL IV PRN (08:33)
[2020-10-16] MEDS ORDERED: ONDANSETRON INJ 2 MG/ML 2 ML VIAL IV PRN ×2 (08:33→10:38)
[2020-10-16] MEDS ORDERED: ATROPINE SULFATE 0.1 MG/ML 10ML SYR IV PRN (08:33)
[2020-10-16] MEDS ORDERED: ePHEDrine sulfate 50 MG/ML AMP IV PRN (08:33)
[2020-10-16] MEDS ORDERED: NEOSTIGMINE METHYLSULFATE 5 MG/5 ML SYR ONE (09:55)
[2020-10-16] MEDS ORDERED: GLYCOPYRROLATE 0.2 MG/ML VIAL ONE (09:55)
[2020-10-16] MEDS ORDERED: ORTHO JOINT ANESTHETIC ONE (10:00)
--- NOTE | 2020-10-16 10:26 | Post Operative Brief Note ---
Immediate Post Op Note v1 Date of Surgery October 16, 2020 Pre & Post Diagnosis Operation Date: 10/16/20 07:30 Pre-Op Diagnosis: Left Shoulder Osteoarthritis Post-Op Diagnosis: Left Shoulder Osteoarthritis I identified the patient and participated in the time-out.: Yes Procedure Operation Date: 10/16/20 07:30 Actual Procedures p Left Total Shoulder Arthroplasty(Left) - Ziggy Berry MD Surgeon Ziggy Berry MD Driver License Technician Talia Blake MD and EVAN Chapman PA-C Estimated Blood Loss 50 Findings Consistent with Post-Op Diagnosis Drains Hemovac Drain (10 maltese round) Anesthesia Type General Regional Complications none Disposition Accompanied Patient To Recovery: No Disposition: Recovery Room
--- NOTE | 2020-10-16 10:36 | Operative Report ---
Post Operative Report Pre & Post Diagnosis Operation Date: 10/16/20 07:30 Pre-Op Diagnosis: Left Shoulder Osteoarthritis Post-Op Diagnosis: Left Shoulder Osteoarthritis I identified the patient and participated in the time-out.: Yes Procedure Operation Date: 10/16/20 07:30 Actual Procedures p Left Total Shoulder Arthroplasty(Left) - Ziggy Berry MD Surgeon Ziggy Berry MD Professional Caster Talia Blake MD and EVAN Chapman PA-C Estimated Blood Loss 50 Findings Consistent with Post-Op Diagnosis Specimens humeral head Drains small hemovac Anesthesia Type General Regional Complications none Disposition Accompanied Patient To Recovery: Yes Disposition: Recovery Room Description of Procedure as per 's note, I assisted in prepping and draping, instruments handling, certain parts of the procedure and wound closure. I attest to the content of the Intraoperative Record and any orders documented therein. Any exceptions are noted below.
[2020-10-16] MEDS ORDERED: MAGNESIUM HYDROXIDE SUSP 30 ML UDC PO PRN (10:38)
[2020-10-16] MEDS ORDERED: ALUMINUM/MAGNESIUM SUSP 30 ML UDC PO PRN (10:38)
[2020-10-16] MEDS ORDERED: bisacodyL 10 MG SUPP PR PRN (10:38)
[2020-10-16] MEDS ORDERED: HYDROmorphone INJ 0.5 MG/0.5 ML SYR IV PRN (10:38)
[2020-10-16] MEDS ORDERED: NALOXONE HCL 0.4 MG/1 ML VIAL/CARP IV PRN (10:38)
[2020-10-16] MEDS ORDERED: METOCLOPRAMIDE HCL INJ 5 MG/ML 2 ML VIAL IV PRN (10:38)
[2020-10-16] MEDS ORDERED: oxyCODONE HCL IR 5 MG TAB (IMMEDIATE RELEASE) PO PRN (10:38)
[2020-10-16] MEDS ORDERED: diphenhydrAMINE 50 MG/ML VIAL IV PRN (10:38)
--- NOTE | 2020-10-16 10:38 | Operative Report ---
Post Operative Report Pre & Post Diagnosis Operation Date: 10/16/20 07:30 Pre-Op Diagnosis: Left Shoulder Osteoarthritis Post-Op Diagnosis: Left Shoulder Osteoarthritis I identified the patient and participated in the time-out.: Yes Procedure Operation Date: 10/16/20 07:30 Actual Procedures p Left Total Shoulder Arthroplasty(Left) - Ziggy Berry MD Surgeon Ziggy Berry MD Slicing Machine Tender Talia Blake MD and EVAN Chapman PA-C Estimated Blood Loss 50 Findings Consistent with Post-Op Diagnosis Specimens Humeral head Complications none Disposition Accompanied Patient To Recovery: Yes Disposition: Recovery Room Description of Procedure I was present during the entire procedure assisting with positioning, prepping, draping, retraction, wound closure, dressing and sling application. Fellow also present. I served as an extra set of hands. Please see Dr. Berry procedure note for specifics of the case. I attest to the content of the Intraoperative Record and any orders documented therein. Any exceptions are noted below.
[2020-10-16] MEDS ORDERED: TAMSULOSIN HCL 0.4 MG CAP PO PRN (10:39)
[2020-10-16] MEDS ORDERED: PHARMACY GLYCEMIC MGMT CONSULT PRN (11:37)
--- NOTE | 2020-10-16 11:46 | Pharmacy Report ---
Glycemic Control Consultation - Date of Service October 16, 2020 - Scope Scope: Glycemic Pharmacist consulted for glycemic control and to write orders per [facility] inpatient glycemic control protocol. - Objective Weight: 103.6 kg Accuchecks BSG (last 24hrs): 10/16/20 10/16/20 05:29 10:38 POC Glucose 124 H 133 H HbA1c: Hemoglobin A1c 6.1 % (4.5-5.6) H 09/19/20 14:30 - Recent Pertinent Medications Outpatient Anti-diabetic Regimen: * Metformin * A1c = 6.1 % 09/19/20 Risk Factors for Insulin Resistance: * Recent Surgery: POD 0 s/p L shoulder arthroplasty * Diet: T2DM - Assessment & Plan Assessment & Plan: ASSESSMENT: * 70 yo M with T2DM and excellent control of BSG's per outpatient A1c on metformin alone. Pharmacy consulted for glycemic management post-op. * BSG's good thus far and no steroids administered perioperatively * Will hold home metformin for now x2 days, and resume on 12 * Will give one-time low dose of Lantus now to help keep BSG's less than 150 mg/dL in the 24 hours post surgery * Will initiate Novolog at weight based moderate stress estimate with one overnight check x2 days. Then will continue with only correction factor when metformin starts PLAN FOR INPATIENT GLYCEMIC CONTROL: * Holding outpatient oral diabetes medications for now. Start metformin 850 mg po BID on 12/5 AM * Basal insulin * Lantus 20 units SQ x1 now * Bolus insulin * NovoLog per scale ACHS with one overnight check tonight * Goal Range: Low 110 mg/dL - High 140 mg/dL * Correction Factor: 25 mg/dL/unit * Carb ratio: 8 g CHO/unit for now. Eliminate CHO ratio starting 12/5 AM Spoke w Varun Chapman PA-C: anticipate glycemic control will be good with no further adjustments necessary to glycemic regimen. Therefore pharmacy is signing off at this time. Please feel free to re-consult if BSG's are not adequately controlled with above regimen. * Please note that the plan above was derived based on current level of insulin resistance and hospital stress. These recommendations are appropriate for inpatient admission only. Plan of care upon discharge will need to be reassessed to avoid potential outpatient hypo/hyperglycemia. Thank you.
--- NOTE | 2020-10-16 11:52 | XRay Report ---
XR shoulder LT min 2V routine CLINICAL HISTORY: Post shoulder surgery COMPARISON STUDY: Left shoulder 09/19/2020. FINDINGS: Status post a left total shoulder arthroplasty. The hardware appears intact. No fracture or dislocation. Surgical drain is in place. IMPRESSION: Status post left total shoulder arthroplasty. No evidence for hardware complication. ACT 112: Negative or not required by law. Electronically signed by: Kyle Michaud M.D. 10/16/2020 11:51 AM
--- NOTE | 2020-10-16 12:19 | Operative Report (OR) ---
DATE OF OPERATION: 10/16/2020 PREOPERATIVE DIAGNOSIS: Left glenohumeral joint osteoarthritis. POSTOPERATIVE DIAGNOSIS: Left glenohumeral joint osteoarthritis. OPERATIONS PERFORMED: Left total shoulder arthroplasty. SURGEON: Ziggy Berry MD. ASSISTANTS: Talia Blake MD and Mariaa Chapman PA-C. ESTIMATED BLOOD LOSS: 50 mL. SPECIMENS: Humeral head. COMPLICATIONS: None. IMPLANTS: 1. Large left 35-degree augmented Perform Plus all polyethylene Cortiloc Tornier glenoid. 2. Tornier 52 x 19 high-offset humeral head cobalt chrome. 3. Tornier Ascend Flex size 6B standard stem. INDICATIONS: Mr. Ruiz is a 70-year-old male who has had left shoulder pain that has been refractory to conservative management. X-rays and CT scan demonstrate complete joint space loss and a large inferior humeral osteophyte as well as a biconcave Walch type B2 glenoid. I had a long discussion with the patient about the risks and benefits of surgery, alternatives to surgery, and expected outcomes. After reviewing all these, he elected to proceed with surgery. All questions were answered. Informed consent was signed. DESCRIPTION OF THE OPERATION: The patient was identified in the preoperative holding area where his surgical site was marked. He was given an interscalene block by anesthesia and brought back to main operating room where he was placed on the operating room table with a Tenet bed attachment and general anesthesia was administered. He was moved up into the beach chair position approximately 60 degrees. All bony prominences were padded. Perioperative antibiotics were administered. Exam under anesthesia was then performed. The patient had 0 degrees of external rotation with the arm at the side. His forward flexion was limited to 85 degrees and abduction was limited to 70 degrees. The extremity was then prepped and draped in normal sterile fashion. Prior to incision, a multidisciplinary timeout was called. All in the room were in agreement. We began by making a 10 cm long incision for a deltopectoral approach. Cephalic vein was identified and was taken medially. Crossing branches were cauterized or suture ligated. The lateral aspect of the conjoined tendon was identified, and the clavipectoral fascia was incised. The 3 sisters were identified and were cauterized. We then identified the long head of the biceps tendon. The sheath overlying the tendon was incised and the Brewer scissors were used to unroof the biceps through the rotator interval towards the glenoid. The long head of the biceps was then transected just off the glenoid. It was tenodesed to the pectoralis major tendon using #2 Ethibond sutures. Next, a subscapularis peel was performed using a needle tip Bovie. Once this was complete, the humeral head was externally rotated and dislocated. Large inferior humeral osteophytes were identified. These were removed using the rongeurs. We then continued our dissection all the way around to the posterior aspect of the humeral head where again further inferior humeral osteophytes were identified and removed. Next, the cutting guide was placed up onto the humerus, set at 130 degrees. This is marked out using the Bovie. Freehand cut technique was used to match his [place] retroversion, which was approximately 30 degrees. We then used the sounders and were able to sound him all the way up to a size 8. However, we were only able to broach him up to a size 6. A calcar planer was used followed by the protector. We then began to expose the glenoid. Posterior glenoid retractor was placed. The subscapularis releases were then performed bluntly on the anterior aspect of the subscapularis and with Brewer scissors along the superior rolled border as well as between the subscapularis and the capsule. Inferior capsule was released taking great care to protect the axillary nerve. We then excised the long head of the biceps tendon stump as well as what remained of his glenoid labrum. The glenoid was inspected and there was a significant amount of posterior wear consistent with a B2 glenoid. Our custom made guide was then brought up into the surgical field and was situated on the glenoid where it locked in nicely. We then placed the guidepin. We checked the position of our guidepin using vertical and horizontal axes to the glenoid. We were happy with its location. We then placed the Paleo reamer down and gently reamed the anterior aspect of the glenoid. The 35 degree Bucky reamer was then used to gently ream the posterior glenoid. Very minimal bone had to be resected. We then placed our trial down and were happy with the fit. We therefore drilled our 3 pegged holes. The central awl was then drilled next. A trial was placed and it sat nicely. Therefore, the trial was removed and the real Tornier Perform Plus Cortiloc glenoid was opened up. This was a size large. The holes in the glenoid were irrigated out and dried. Palacos cement was mixed on the back table. Bone marrow from the humeral head was compressed around the Cortiloc central peg. Cement was placed in 3 peripheral holes under pressure. We then placed the definitive polyethylene implant in place and impacted it with a mallet and then held it for approximately 5 minutes until the cement had cured. Next, we carefully redislocated the humeral head protecting the glenoid. We trialled him with a 52 x 19 humeral head. This gave us a purely good coverage and had appropriate soft tissue tension. There was a little bit of exposed bone left uncovered. Therefore, I upsized to a 54. This had a 23 mm thickness, however. This was felt to be too tight as the subscapularis repair was likely to be under too much tension and risk for failure. Therefore, I downsized him back to the 52 x 19 humeral head. We then removed the trial component in 1 piece. The rotation was measured on the back table. The real implant for the humerus was opened up. The Roy taper was engaged on the back table. We irrigated and dried out the humeral canal. Four drill holes were placed for subscapularis repair. Three #2 FiberWires were placed through these drill holes. We then placed the implant. This was impacted down in position and sat nicely. We then placed a Kolbel retractor and performed a subscapularis repair. The #2 FiberWires were passed in a modified Prashanth-Laci technique. Sutures were then tied to one another for additional fixation. Sutures were all then cut. We checked his external rotation. He could easily get to 30 degrees without undue tension on the repair. His forward elevation was previously checked and we could get him now up to 130 degrees easily. At this point, a drain was placed in the subdeltoid space exiting posterior superiorly. The deltopectoral interval was closed with #2 Ethibond. The dermal layer was closed with a running 2-0 Vicryl. ZipLine was used for the skin. Sterile dressings were applied. The patient was awoke from anesthesia and transferred to the recovery room in stable condition. POSTOPERATIVE COURSE: The patient will be admitted overnight for pain control and monitoring. We will pull his drain in the morning. He will be in a sling for the next 6 weeks. External rotation will be limited to 0 degrees for the next 6 weeks. No lifting anything more than a cup of coffee for 3 months and a permanent 25-pound lifting restriction. Aspirin for DVT prophylaxis. I attest to the content of the Intraoperative Record and any orders documented therein. Any exceptions are noted below. ROSALIO
[2020-10-16] MEDS ORDERED: INSULIN ASPART 100 UNITS/ML 3 ML PEN SC STA (12:27)
[2020-10-16] MEDS ORDERED: LANTUS PER UNIT CHARGE SQ ONE (12:30)
--- NOTE | 2020-10-16 12:38 | Anesthesiology Progress Note ---
Date of Service October 16, 2020 Anesthesia Post Procedure Vital Signs Vital Signs: Temp Pulse Pulse Resp BP Pulse Ox 10/16/20 12:14 36.4 C L 61 18 137/76 93 10/16/20 11:42 37.1 C 72 16 145/61 H 93 10/16/20 11:25 62 24 139/55 L 94 10/16/20 11:15 37.0 C 61 22 147/69 H 93 10/16/20 11:05 62 17 144/70 H 93 10/16/20 10:55 57 L 24 141/77 H 98 10/16/20 10:45 58 L 24 146/74 H 98 10/16/20 10:35 36.9 C 67 16 152/78 H 97 10/16/20 05:28 37 C 63 18 160/86 H 98 Pain Intensity Left Shoulder: Pain Intensity: 0 Transfer of Care Handoff Completed per policy Notes Mental Status: alert / awake / arousable and participated in evaluation Patient Amnestic to Procedure: Yes Nausea / Vomiting: adequately controlled Pain: adequately controlled Airway Patency, RR, SpO2: stable & adequate BP & HR: stable & adequate Hydration State: stable & adequate Anesthetic Complications: no major complications apparent and Pt Satisfied with anesthetic care Notes: block is functioning well
[2020-10-16] MEDS: SODIUM CHLORIDE 0.9% 1000ML 1,000 ML IV SCH ×2 (12:50→21:42)
[2020-10-16] MEDS: KETOROLAC TROMETHAMINE 15 MG/ML VIAL IV SCH ×2 (12:51→18:54)
[2020-10-16] MEDS: ACETAMINOPHEN 500 MG TAB PO SCH ×2 (12:52→21:46)
[2020-10-16] MEDS: ceFAZolin 2000MG 2,000 MG/15 ML SYR IV SCH (15:33)
[2020-10-16] MEDS: Scopolamine CHECK PATCH PLACEMENT SCH (15:34)
[2020-10-16] MEDS ORDERED: TRANEXAMIC ACID / 0.7% NACL 1,000 MG/100 ML BAG IV SCH (17:00)
[2020-10-16] MEDS: INSULIN ASPART 100 UNITS/ML 3 ML PEN SC SCH ×2 (17:45→21:49)
[2020-10-16] MEDS ORDERED: NON-FORMULARY MEDICATION (Glucosamine-Msm-Magnesium-Vitc [Glucosamine Complex-Msm] Capsule PO SCH (21:00)
[2020-10-16] MEDS ORDERED: SENNA 8.6 MG TAB PO SCH (21:00)
[2020-10-16] MEDS: DOCUSATE SODIUM 100 MG CAP PO SCH (21:46)
[2020-10-17] MEDS: KETOROLAC TROMETHAMINE 15 MG/ML VIAL IV SCH ×2 (00:27→06:45)
[2020-10-17] MEDS: ceFAZolin 2000MG 2,000 MG/15 ML SYR IV SCH (00:28)
[2020-10-17] MEDS: Scopolamine CHECK PATCH PLACEMENT SCH ×2 (00:28→07:25)
[2020-10-17] MEDS ORDERED: INSULIN ASPART 100 UNITS/ML 3 ML PEN SC ONE (02:00)
[2020-10-17 06:09] LABS: Basophils # (auto) 0.02 K/uL (0-0.2); Basophils % (auto) 0.3 %; Eosinophils # (auto) 0.17 K/uL (0-0.5); Eosinophils % (auto) 2.6 %; Hematocrit (blood only) 37.5 % (42-52); Hemoglobin 12.7 g/dL (14.0-18.0); Immature Granulocytes # (auto) 0.03 K/uL (0.00-0.02); Immature Granulocytes % (auto) 0.5 %; Lymphocytes # (auto) 0.96 K/uL (1.2-3.4); Lymphocytes % (auto) 14.7 %; Mean Corpuscular Hemoglobin 30.9 pg (25-34); Mean Corpuscular Hgb Conc 33.9 g/dL (32-36); Mean Corpuscular Volume 91.2 fL (80-100); Mean Platelet Volume 10.2 fL (7.4-10.4); Monocytes # (auto) 0.74 K/uL (0.11-0.59); Monocytes % (auto) 11.3 %; Neutrophils % (auto) 70.6 %; Platelet Count 197 K/uL (130-400); RDW Coefficient of Variation 13.5 % (11.5-14.5); Red Blood Count 4.11 M/uL (4.7-6.1); White Blood Count 6.52 K/uL (4.8-10.8)
[2020-10-17 06:40] LABS: Est GFR (African American) 103.3; Est GFR (Non-African American) 89.1; Potassium 3.7 mmol/L (3.5-5.1)
[2020-10-17 06:41] LABS: BUN Creatinine Ratio 14.4 (10-20); Calcium 8.3 mg/dl (8.5-10.1); Creatinine Clr Calc Pharmacy 96.7 ml/min
[2020-10-17] MEDS: ACETAMINOPHEN 500 MG TAB PO SCH (06:45)
[2020-10-17] MEDS: INSULIN ASPART 100 UNITS/ML 3 ML PEN SC SCH (08:32)
[2020-10-17] MEDS: DOCUSATE SODIUM 100 MG CAP PO SCH (08:35)
--- NOTE | 2020-10-17 08:51 | Anesthesiology Progress Note ---
Date of Service October 17, 2020 Anesthesia Post Procedure Vital Signs Vital Signs: Temp Pulse Pulse Resp BP Pulse Ox 10/17/20 08:40 36.5 C 68 58 L 16 125/63 94 10/17/20 03:15 36.5 C 58 L 16 125/63 94 10/16/20 23:37 36.8 C 49 L 16 124/62 95 10/16/20 19:57 36.5 C 56 L 19 129/66 94 10/16/20 15:14 36.8 C 71 18 134/65 96 10/16/20 14:32 68 19 132/76 94 10/16/20 13:50 36.4 C L 68 20 152/79 H 95 10/16/20 12:42 18 139/73 93 10/16/20 12:14 36.4 C L 61 18 137/76 93 10/16/20 11:42 37.1 C 72 16 145/61 H 93 10/16/20 11:25 62 24 139/55 L 94 10/16/20 11:15 37.0 C 61 22 147/69 H 93 10/16/20 11:05 62 17 144/70 H 93 10/16/20 10:55 57 L 24 141/77 H 98 10/16/20 10:45 58 L 24 146/74 H 98 10/16/20 10:35 36.9 C 67 16 152/78 H 97 Pain Intensity Left Shoulder: Pain Intensity: 0 Transfer of Care Handoff Completed per policy Notes Mental Status: alert / awake / arousable and participated in evaluation Patient Amnestic to Procedure: Yes Nausea / Vomiting: adequately controlled Pain: adequately controlled Airway Patency, RR, SpO2: stable & adequate BP & HR: stable & adequate Hydration State: stable & adequate Anesthetic Complications: no major complications apparent and Pt Satisfied with anesthetic care Notes: pt reports manageable pain with regional block
[2020-10-17] MEDS ORDERED: LISINOPRIL/HCTZ 10/12.5MG TAB PO SCH (09:00)
[2020-10-17] MEDS ORDERED: MULTIVITAMIN TAB PO SCH (09:00)
[2020-10-17] MEDS ORDERED: ASPIRIN 81 MG ECTAB PO SCH (09:00)
[2020-10-17] MEDS ORDERED: CETIRIZINE HCL 10 MG TABLET PO SCH (09:00)
[2020-10-17] MEDS ORDERED: ASCORBIC ACID 500 MG TAB PO SCH (09:00)
[2020-10-17] MEDS ORDERED: RIVAROXABAN 10 MG TABLET PO SCH (09:00)
--- NOTE | 2020-10-17 10:42 | Orthopedic Progress Note ---
Date of Service October 17, 2020 Assessment & Plan (1) Status post total shoulder arthroplasty: Lifting restriction of left upper extremity (nothing greater than a full coffee cup) Lifetime restriction of 25 pounds with the left upper extremity DVT prophylaxis with LILLIAM stockings and Xarelto Pain control with p.o. medications Ice with EZ wrap Sling use x6 weeks External rotation to 0 degrees Patient will do his physical therapy outpatient Patient will begin doing pendulum exercises that were shown today. Follow-up at [facility] orthopedics as scheduled in 2 weeks With questions: Call [phone] Admission and Anticipated Discharge Date Admission Date: October 16, 2020 Subjective This 70-year-old male is day 1 status post left total shoulder arthroplasty. Currently he is sitting in the bedside chair, completely dressed and states that he is ready to be discharged home. He has just completed PT and OT and has had no issues. States his pain is well controlled with p.o. pain medication. He denies numbness or tingling in the left upper extremity. He also denies chest pain, shortness of breath, fever, chills, sweats, nausea, vomiting, lethargy or fatigue. Review of Systems Review of Systems: All systems reviewed & are unremarkable except as noted in Subjective Physical Exam Physical Exam: Left shoulder: Dressing and and drain were removed. A Silverlon dressing was applied over the incision site. I also applied a sterile 4 x 4 and a Tegaderm over the drain site. Patient was able to depict light sensation to touch circumferentially around the incision site. There was some m ild edema and ecchymosis noted in the axillary fold. Patient was able to reach terminal flexion extension at his elbow. Had full range of motion of his wrist. Appropriate dexterity of his fingers. Route Sales Representative strength is equal bilaterally. Patient was neurovascular intact in left upper extremity. Results & Data ([facility]) Vital Signs (Past 12 Hours) Vital Signs Temp Pulse Pulse Resp BP Pulse Ox 10/17/20 08:40 36.5 C 68 58 L 16 125/63 94 10/17/20 03:15 36.5 C 58 L 16 125/63 94 10/16/20 23:37 36.8 C 49 L 16 124/62 95 Laboratory Results 10/17/20 10/17/20 10/17/20 Range/Units 07:56 05:34 05:33 WBC 6.52 (4.8-10.8) K/uL RBC 4.11 L (4.7-6.1) M/uL Hgb 12.7 L (14.0-18.0) g/dL Hct 37.5 L (42-52) % MCV 91.2 (80-100) fL MCH 30.9 (25-34) pg MCHC 33.9 (32-36) g/dL RDW Std Deviation 45.0 (36.4-46.3) fL RDW Coeff of Esvin 13.5 (11.5-14.5) % Plt Count 197 (130-400) K/uL MPV 10.2 (7.4-10.4) fL Immature Gran % (Auto) 0.5 % Neut % (Auto) 70.6 % Lymph % (Auto) 14.7 % [place] % (Auto) 11.3 % Eos % (Auto) 2.6 % Baso % (Auto) 0.3 % Neut # (Auto) 4.60 (1.4-6.5) K/uL Lymph # (Auto) 0.96 L (1.2-3.4) K/uL [place] # (Auto) 0.74 H (0.11-0.59) K/uL Eos # (Auto) 0.17 (0-0.5) K/uL Baso # (Auto) 0.02 (0-0.2) K/uL Immature Gran # (Auto) 0.03 H (0.00-0.02) K/uL Sodium 136 (136-145) mmol/L Potassium 3.7 (3.5-5.1) mmol/L Chloride 104 (98-107) mmol/L Carbon Dioxide 28 (21-32) mmol/L Anion Gap 4.0 (3-11) BUN 12 (7-18) mg/dl Creatinine 0.86 (0.6-1.4) mg/dl Est Cr Clr Drug Dosing 96.7 ml/min Est GFR ( Amer) 103.3 Est GFR (Non-Af Amer) 89.1 BUN/Creatinine Ratio 14.4 (10-20) Glucose 119 H (70-99) mg/dl POC Glucose 110 H (70-99) mg/dl Calcium 8.3 L (8.5-10.1) mg/dl 10/16/20 10/16/20 10/16/20 Range/Units 20:40 17:07 11:48 WBC (4.8-10.8) K/uL RBC (4.7-6.1) M/uL Hgb (14.0-18.0) g/dL Hct (42-52) % MCV (80-100) fL MCH (25-34) pg MCHC (32-36) g/dL RDW Std Deviation (36.4-46.3) fL RDW Coeff of Esvin (11.5-14.5) % Plt Count (130-400) K/uL MPV (7.4-10.4) fL Immature Gran % (Auto) % Neut % (Auto) % Lymph % (Auto) % [place] % (Auto) % Eos % (Auto) % Baso % (Auto) % Neut # (Auto) (1.4-6.5) K/uL Lymph # (Auto) (1.2-3.4) K/uL [place] # (Auto) (0.11-0.59) K/uL Eos # (Auto) (0-0.5) K/uL Baso # (Auto) (0-0.2) K/uL Immature Gran # (Auto) (0.00-0.02) K/uL Sodium (136-145) mmol/L Potassium (3.5-5.1) mmol/L Chloride (98-107) mmol/L Carbon Dioxide (21-32) mmol/L Anion Gap (3-11) BUN (7-18) mg/dl Creatinine (0.6-1.4) mg/dl Est Cr Clr Drug Dosing ml/min Est GFR ( Amer) Est GFR (Non-Af Amer) BUN/Creatinine Ratio (10-20) Glucose (70-99) mg/dl POC Glucose 133 H 106 H 156 H (70-99) mg/dl Calcium (8.5-10.1) mg/dl 10/16/20 Range/Units 10:38 WBC (4.8-10.8) K/uL RBC (4.7-6.1) M/uL Hgb (14.0-18.0) g/dL Hct (42-52) % MCV (80-100) fL MCH (25-34) pg MCHC (32-36) g/dL RDW Std Deviation (36.4-46.3) fL RDW Coeff of Esvin (11.5-14.5) % Plt Count (130-400) K/uL MPV (7.4-10.4) fL Immature Gran % (Auto) % Neut % (Auto) % Lymph % (Auto) % [place] % (Auto) % Eos % (Auto) % Baso % (Auto) % Neut # (Auto) (1.4-6.5) K/uL Lymph # (Auto) (1.2-3.4) K/uL [place] # (Auto) (0.11-0.59) K/uL Eos # (Auto) (0-0.5) K/uL Baso # (Auto) (0-0.2) K/uL Immature Gran # (Auto) (0.00-0.02) K/uL Sodium (136-145) mmol/L Potassium (3.5-5.1) mmol/L Chloride (98-107) mmol/L Carbon Dioxide (21-32) mmol/L Anion Gap (3-11) BUN (7-18) mg/dl Creatinine (0.6-1.4) mg/dl Est Cr Clr Drug Dosing ml/min Est GFR ( Amer) Est GFR (Non-Af Amer) BUN/Creatinine Ratio (10-20) Glucose (70-99) mg/dl POC Glucose 133 H (70-99) mg/dl Calcium (8.5-10.1) mg/dl
--- NOTE | 2020-10-17 10:43 | Discharge Summary ---
Date of Service October 17, 2020 Admission HPI Per Admitting Provider History of Present Illness (including history relevant to procedure): This 70-year-old male presents the clinic today for his preoperative history and physical. Patient complains of left shoulder pain for at least 2 decades. He says he saw an orthopedic surgeon 15 years ago who told him he might need a shoulder replacement but thought he was too young at that time. Pain is progressively worsened. He is now having problems with any overhead activities. Pain is localized to the left shoulder and is nonradiating. Patient is left- hand dominant Past Medical History: Problems: Pre-op exam Right knee DJD DM (diabetes mellitus), type 2 Osteoarthrosis, wrist Weight disorder Arthritis of left shoulder region Hypertensive disorder DVT Pulmonary embolism Procedure History Procedure Procedure Date Comments Primary repair of tendon - Patellar - 10yrs ago - Right Knee Hx of vasectomy Diabetic retinal eye exam 08/21/2018 - no diabetic retinopathy at t his timeNo treatment is necessary at this time. Just yearly monitoring for any changes Ultrasound venous doppler lower ext bilateral 03/14/2017 - no evidence of lower extremity DVT CT angiogram of the chest 03/14/2017 - 1. extensive bilateral pulmonary emboli as above2. cardiomegaly and mild emphysema3. no airspace consolidation or pleural effusion is identified4. there are 2 nodules in the right lower lobe measuring up to 4 mm. These can be followed as per the fleischner criteria if clinically warranted. see below5. additional findings as above Chest x-ray 03/14/2017 - no acute cardiopulmonary findings Colonoscopy 11/21/2015 - Non- bleeding internal hemorrhoids. Diverticulosis in the sigmoid colon. No specimens collected. Wrist X-ray 05/14/2015 - No acute Fracture or dislocation within the right wrist.Scapholunate disassociationDegenerative changes as decribed CXR - Chest X-ray 05/14/2015 - There is an acute right anterior 7th rib fracture. No definate additional Fracture are seen.Trace right pleural effusion and atelectasis. The lungs are otherwise clear Allergies and Sensitivities: avocados(nausea) Social history: Patient consumes approximately 1 alcoholic beverage per day. He denies tobacco or illicit drug use Family history: Cancer and diabetes Current Home Meds: (Last Updated 09/19 13:15) (aspirin 81 mg oral delayed release tablet) 81 mg PO Daily(ZyrTEC) 10 mg PO Dailyglucosamine (chondroitin- glucosamine 1.2 g-1.5 g oral capsule)lisinopril (hydroCHLOROthiazide-lisinopril 12.5 mg-10 mg oral tablet) TAKE 1 TABLET BY MOUTH EVERY DAY(metFORMIN 850 mg oral tablet) TAKE 1 TABLET BY MOUTH TWO TIMES DAILY Initial Wt: No Data Available Admission Exam Per Admitting Provider Physical Exam: (relevant to the procedure, including heart and lung evaluation) General: Alert and oriented x3 with proper grooming and hygiene Eyes: Pupils are equal and reactive to light with accommodation. Extract movements are intact Throat: Deferred due to COVID-19 precautions Cardiac: Regular rate and rhythm with no murmurs or gallops appreciated Lungs: Clear to auscultation throughout with no wheezing, rales or rhonchi Abdomen: Mildly obese, nondistended, nontender with normal active bowel sounds Extremities: Left shoulder exam shows tenderness palpation along the posterior glenohumeral joint line. Active range of motion is limited to 0 degrees of external rotation, 110 degrees of forward elevation, and 90 degrees of abduction. Rotator cuff strength is 5 out of 5 infra and supra spinatus and subscapularis. Neurovascular intact. Neuro: Cranial nerves II through XII intact no motor or sensory deficit Skin: Normal in appearance no open skin areas of discharge Principal Diagnosis Left shoulder osteoarthritis Discharge Exam Left shoulder: Dressing and and drain were removed. A Silverlon dressing was applied over the incision site. I also applied a sterile 4 x 4 and a Tegaderm over the drain site. Patient was able to depict light sensation to touch circumferentially around the incision site. There was some mild edema and ecchymosis noted in the axillary fold. Patient was able to reach terminal flexion extension at his elbow. Had full range of motion of his wrist. Appropriate dexterity of his fingers. Welt Rander strength is equal bilaterally. Patient was neurovascular intact in left upper extremity. Discharge Data Allergies Allergy/AdvReac Type Severity Reaction Status Date / Time pollen extracts Allergy Intermediate itchy Verified 10/16/20 05:26 eyes, runny nose, sneezing avocado AdvReac Intermediate GI upset Verified 10/16/20 05:26 Consultations 10/16/20 10:43 Consult Case Management - Discharge Planning Routine Procedures Performed Operation Date: 10/16/20 07:30 Actual Procedures p Left Total Shoulder Arthroplasty(Left) - Ziggy Berry MD Ordered Studies 10/16/20 08:33 US - OR guided needle placemen Routine Hospital Course (1) Status post total shoulder arthroplasty: Patient had an uneventful Overnight stay. He did very well with physical and occupational therapy this morning. He plans on doing basic range of motion exercises on his own, such as pendulum exercises. Patient states that he is scheduled for some outpatient physical therapy starting next week. He will keep the new applied dressings in place until his follow-up, avoid external rotation of the shoulder and use a sling for the next 6 weeks postoperatively. Lifting restriction of left upper extremity (nothing greater than a full coffee cup) Lifetime restriction of 25 pounds with the left upper extremity DVT prophylaxis with LILILAM stockings and Xarelto Pain control with p.o. medications Ice with EZ wrap Sling use x6 weeks External rotation to 0 degrees Patient will do his physical therapy outpatient Patient will begin doing pendulum exercises that were shown today. Follow-up at [facility] orthopedics as scheduled in 2 weeks With questions: Call [phone] Total Time Total Time Spent Total Time Spent (In Minutes): 20 minutes Total Time Includes: Examination of the Patient, Discharge Planning and Medication Reconciliation Discharge Plan Discharge Items Patient Disposition: Home - Home Health Services Reason For Visit: Left Shoulder Arthritis Discharge Diagnosis: Left shoulder osteoarthritis Activity: As commented below Lifting Comment: No more than full coffee cup x 3 months Bathing: Keep incision dry Bathing Comment: May shower tomorrow Sexual Activity: Wait until after follow-up appointment Exercise/Sports: Wait until after follow-up appointment Driving/Machine Use: No driving until cleared by air defense specialist Weightbearing: Left non-weightbearing Weightbearing Comment: of upper extremity with sling Non-emergency contact: Primary Care Provider Call non-emergency contact if: you have any medication questions, your pain is not controlled, your temperature is above 101.5, your wound has increased drainage and your wound pain has increased Follow-up/Referrals: Kimberly Vidal MD [Primary Care Provider] - Diet: Carb Consistent or DM2 Addtl Attending Provider Instructions: Post-operative Instructions Dear Patient and Family/Friends, Before you are discharged from the hospital, it is important to know what to expect when you get home after surgery. To that end, we have created this sheet of discharge instructions which covers many commonly asked questions. Make sure you go through this sheet in its entirety with your nurse before you are discharged. Please note that we will go over the specifics of your surgery and recovery when you return for your first post-operative visit. Sincerely, Dr. Berry Medication 1. Xarelto 10 mg: take 1 tab daily for 30 days post operatively for blood clot prevention. A prescription for this medication will be sent to your pharmacy. 2. Oxycodone 5 mg: take 1-2 tabs by mouth every 4-6 hours as needed for pain control. A prescription for this will be sent to your pharmacy. 3. Diclofenac Sodium 75 mg: take 1 tab twice daily for 30 days post operatively for pain and inflammation relief. A prescription for the will be sen to your pharmacy with 1 refill. 4. Extra Strength Tylenol 500 mg: take 2 tabs every 6-8 hours for post operative pain relief. Please purchase. Pain Expect to be in a fair amount of pain after surgery. Remember, our goal is not to eliminate your pain, but to make it tolerable. It is a good idea to stay ahead of your pain by taking the medications you were prescribed once you get home. Typically, the pain starts improving 3-7 days after surgery. You should start weaning off the narcotic pain medication (oxycodone, hydrocodone, hydromorphone, morphine) as soon as your pain improves. Please call our office if your pain is not adequately controlled. Ice Ice your operative site at least 5 times a day for 15-30 minutes at a time. Make sure you have a thin cloth between the ice or cooling unit and your skin to prevent olsen bite. This is especially important if you received a nerve block. Continue icing your operative site for the first 5-7 days after surgery, then as needed. Diet/Nausea/Vomiting Start by drinking clear liquids and eating crackers. If you can tolerate this, then you may resume your normal diet. If you feel nauseated or vomit, take Zofran/ondansetron (if prescribed). Please call our office if you have intractable nausea or vomiting, or, if after hours, you may go to the Emergency Room for help. Constipation Constipation is a common side effect of narcotic pain medication. If you have not had a bowel movement within 2 days after surgery, we recommend purchasing an over the counter laxative such as Milk of Magnesia, Dulcolax, or Miralax from a local pharmacy, and taking it as instructed. Call our clinic if any questions. Slings and Braces If you were placed in a sling or brace, it must be worn at all times, including sleep. You may remove your sling or brace for physical therapy, home exercises, and showering. The length of time you will be in your brace and range of motion restrictions depends on what surgery you had; these details will be reviewed at your first post-operative appointment. Nerve block The anesthesia team sometimes places a nerve block to help with post-operative pain control. This results in significant numbness and inability to move the extremity. The nerve block usually wears off in 8-12 hours, but sometimes can last up to 24 hours. Please call our office if you are still unable to move your extremity after 24 hours, unless you received a pain pump to take home. Nerve blocks typically wear off quickly, so start taking pain medication as soon as you start feeling soreness near your surgical site. Weight bearing and Range of Motion. Do not bear any weight through your operative extremity immediately after surgery. If you had upper extremity surgery, do not lift anything with that arm. If you are in a knee brace, keep it locked in place until your follow-up. We will discuss your weight bearing, range of motion, and lifting restrictions in detail at your first post-operative appointment. Continuous Passive Motion (CPM) Machine If you were prescribed a CPM machine, it will start after your first post- operative appointment, at which time we will give you instructions on the range of motion settings and duration of treatment Physical therapy You will be given a prescription for physical therapy or occupational therapy at your first post-operative appointment. Typically, patients start therapy within 1 week of surgery Wound care and showering We will inspect your wound at your first post-operative visit, and may do a dressing change at that time. Most patients will be in a water-proof dressing that is removed 14 days after surgery. It is normal to see some dried blood on the dressing. Do not remove your dressing, paper strips or sutures yourself unless you are given permission. Showering is allowed the day after surgery. Do not scrub or remove any dressings. The wound should not be submerged underwater (i.e. in a bathtub or pool) until 4 weeks after surgery LILLIAM stockings If you were given white stockings, these are to be worn at all times except to shower (on both legs) for the first 2 weeks after surgery. Driving You may not drive while taking narcotic pain medication or while in a cast, splint, sling or brace. You, the patient, need to make the final determination about when you are safe to drive, however, the earliest you may consider driving after surgery is below: Hand/Wrist/Elbow Surgery: 3 days Shoulder Surgery: 2 weeks Hip,/Knee/Ankle Surgery: 4 weeks Fracture repair: 6 weeks Return to Work Your return to work depends on what surgery was done and what type of work you do. Please bring any paperwork your employer needs completed to your first post-operative visit. Also, bring a description of your job duties, as this helps us to understand what risks you may face at work. Travel Avoid long distance travel (greater than 1 hour) in airplanes and cars for the first 6 weeks after surgery. If you must travel, you need to have a Doppler ultrasound done before you travel to rule out a blood clot in your legs. Follow-up You should have a follow-up appointment already scheduled 1-2 days after surgery. If not, please contact our office to make this appointment before you leave the hospital. When to call the office It is normal to have swelling and bruising in the limb that was operated on. This will improve with time. It is also normal to have fevers for the first 2 days after surgery. Reasons you should call your doctor include: Uncontrolled pain; Nausea, vomiting, or constipation that does not improve with medication; Fevers over 101.5, chills, sweats; Drainage or bleeding from the wound; Foul odor; Spreading areas of redness; Any other concerns Pending Studies at Discharge: No Stand-Alone Forms: [facility] [employer], Opioid Pain Management Medications and DC Order Prescriptions: New oxycodone 5 mg tablet 5 mg PO Q6H MDD 6 tablets Qty: 30 RF: 0 Xarelto 10 mg tablet 10 mg PO DAILY Qty: 30 RF: 0 diclofenac sodium 75 mg tablet,delayed release (DR/EC) 75 mg PO BID 30 Days Qty: 60 RF: 1 Continued metformin 850 mg Tablet 850 mg PO BID RF: 0 aspirin 81 mg Tablet,Delayed Release (Dr/Ec) 81 mg PO QAM RF: 0 lisinopril-hydrochlorothiazide 10-12.5 mg Tablet 1 tab PO QAM RF: 0 Glucosamine Complex-MSM Capsule 1 cap PO BID RF: 0 Zyrtec 10 mg Tablet,Disintegrating 10 mg PO QAM RF: 0 ascorbic acid (vitamin C) 1,000 mg Capsule, Extended Release 1 cap PO DAILY RF: 0 Discharge Orders: Discharge Order (Routine); Ordered 10/16/20 Ordered By: Varun Davila/Other Patient Handouts: High Blood Sugar (Hyperglycemia), Hypoglycemia (Low Blood Sugar), Managing Type 2 Diabetes Admission Data Admit Date/Time: 10/16/20 12:08 Attending Provider: Ziggy Berry Admit Provider: Ziggy Berry Primary Care Provider: Kimberly Vidal Other Interventions: Discharge Summary Assessment (RN) Last Done: 10/17/20 08:40
[2020-10-17] MEDS ORDERED: metFORMIN HCL 850 MG TAB PO SCH (17:00)
[2020-10-17] MEDS ORDERED: CeleBREX 200 MG CAP PO SCH (21:00)
[2020-10-18] MEDS ORDERED: INSULIN ASPART 100 UNITS/ML 3 ML PEN SC SCH (07:30)
[2020-10-18] MEDS ORDERED: metFORMIN HCL 850 MG TAB PO SCH (08:00)
== END 2020-10-17 10:56 | disposition home or self-care (01) | DRG 483 ==
LOC: ASU 05:14 → 3E 12:08

== ENCOUNTER 2025-10-17 08:34 | Observation (INO) ==
--- NOTE | 2025-09-09 10:16 | PAT Medication Instructions ---
Medication Instructions Date of Service September 09, 2025 Home Medications aspirin 81 mg tablet,delayed release 81 mg PO QAM cetirizine 10 mg disintegrating tablet (Zyrtec) 10 mg PO QAM niurrjqgowe-uok-wxenkxfts-vitC capsule (Glucosamine Complex-MSM capsule) 1 cap PO BID ascorbic acid (vitamin C) 1,000 mg capsule,extended release 1 cap PO DAILY pravastatin 20 mg tablet 20 mg PO QPM semaglutide 0.25 mg or 0.5 mg (2 mg/3 mL) subcutaneous pen injector (Ozempic) 2 mg subcut WK lisinopril 20 mg tablet 20 mg PO PM metformin 850 mg tablet 850 mg PO BID metoprolol succinate 25 mg tablet,extended release 24 hr 25 mg PO PM MEDICATION INSTRUCTIONS: ASK your prescriber and surgeon aspirin 81 mg tablet,delayed release 81 mg PO QAM STOP taking 2 weeks before surgery nyazwphekml-uyl-cimtdjzrf-vitC capsule (Glucosamine Complex-MSM capsule) 1 cap PO BID DO NOT take the morning of surgery metformin 850 mg tablet 850 mg PO BID ascorbic acid (vitamin C) 1,000 mg capsule,extended release 1 cap PO DAILY cetirizine 10 mg disintegrating tablet (Zyrtec) 10 mg PO QAM Take evening before surgery metformin 850 mg tablet 850 mg PO BID metoprolol succinate 25 mg tablet,extended release 24 hr 25 mg PO PM pravastatin 20 mg tablet 20 mg PO QPM lisinopril 20 mg tablet 20 mg PO PM Other Notes Per nursing phone intake, last dose to be 10/07/25 of: semaglutide 0.25 mg or 0.5 mg (2 mg/3 mL) subcutaneous pen injector (Ozempic) 2 mg subcut WK Reminder: NOTHING TO EAT OR DRINK AFTER MIDNIGHT If you have any questions please call us at [phone] or [phone] or [phone] or [phone]
--- NOTE | 2025-09-17 10:55 | Anesthesiology Consultation ---
Date of Service September 17, 2025 Assessment & Plan (1) Encounter for pre-operative examination: - Check BSG DOS - Infectious disease screening: Per assessment on 09/16/25- No known recent infectious disease contacts or current infectious disease symptoms. - Outpatient joint assessment: Pt currently scheduled for inpatient pathway. If surgeon requests review for outpatient joint pathway, patient is not a recommended candidate for outpatient joint program from anesthesia standpoint based on available information. - GLP-1 medication instructions: Patient informed by PAT to stop 7 days prior to surgery- voiced understanding. DOS 10/17. Advised last dose to be 10/07. - Acceptable risk for surgery pending surgeon-ordered PCP (Dr. Juares, appt done 08/2025) and cardiology (Dr. Sanchez, appt 10/01) preop evaluations. Chart Review Chart Review: Patient seen in Pre Admission Testing Teaching & Discussion Pre-Anesthesia Teaching/Discussion Notes: Instructed NPO after midnight before surgery,except medications with 15 cc of water. Medication instructions provided according to the PAT guidelines. History Surgery Operation Date: 10/17/25 10:25 Proposed Procedures p Right Total Knee Arthroplasty - Ziggy Berry MD Height/Weight Height: 5 ft 9 in Weight: 98.6 kg Allergies Allergy/AdvReac Type Severity Reaction Status Date / Time pollen extracts Allergy Intermediate Itchy Verified 09/11/25 08:42 eyes, runny nose, sneezing avocado AdvReac Intermediate GI upset Verified 09/06/25 13:40 Medications Home Medications Medication Instructions Recorded Confirmed Last Taken aspirin 81 mg tablet,delayed 81 mg PO QAM 09/03/20 09/06/25 06/29/23 release cetirizine 10 mg disintegrating 10 mg PO QAM 09/03/20 09/06/25 06/29/23 tablet (Zyrtec) bjckninanhb-usc-yukffglxn-vitC 1 cap PO BID 09/03/20 09/06/25 06/29/23 capsule (Glucosamine Complex-MSM capsule) ascorbic acid (vitamin C) 1,000 mg 1 cap PO DAILY 10/16/20 09/06/25 06/29/23 capsule,extended release pravastatin 20 mg tablet 20 mg PO QPM 06/06/23 09/06/25 06/14/23 semaglutide 0.25 mg or 0.5 mg (2 2 mg subcut WK 06/06/23 09/06/25 06/13/23 mg/3 mL) subcutaneous pen injector ([employer]) lisinopril 20 mg tablet 20 mg PO PM 09/06/25 09/06/25 Unknown metformin 850 mg tablet 850 mg PO BID 09/06/25 09/06/25 Unknown metoprolol succinate 25 mg 25 mg PO PM 09/06/25 09/06/25 Unknown tablet,extended release 24 hr Past Medical History Medical History Anemia Arthritis Diabetes mellitus, type 2 History of atrial fibrillation (2016) "Related to blood clots" History of DVT (deep vein thrombosis) RLE (2016) after flight, previously on AC/since discontinued Hx pulmonary embolism (2016) after flight, previously on AC/since discontinued Hyperlipidemia Hypertension Obesity PVCs (premature ventricular contractions) "Mild" Exercise / Class Metabolic Activity II 4-5 Yardwork/Stairs/Walk up hill (one FS: No CP, no SOB) Past Family History Family History Father Family history of diabetes mellitus Past Surgical History Surgical History History of cataract surgery R/L History of colonoscopy History of knee surgery Right tendon repair History of left shoulder replacement History of tooth extraction WTE Past Anesthesia History No Hx of Anesthesia Complications and No Family Hx of Anesthesia Complications History of PONV No Hx of PONV and No Hx of Motion Sickness Social History Smoking Status: Never smoker Do You Dip or Chew Tobacco: No Hx Alcohol Use: Yes Alcohol type: hard liquor alcohol intake frequency: a few times a week Hx Substance Use: No substance use type: does not use Review of Systems Patient denies chest pain, shortness of breath, dyspnea on exertion, fever, chills, cough, wheezing, palpitations. Physical Exam Vital Signs BP 136/69 P 65 TEMP 98.1 SP02 96%RA RESP 16 Physical Full cervical extension range of motion. Full TMJ range of motion. TMD 3 finger breaths Mallampati Score II Dentition: intact, possible crown Lungs: clear throughout to auscultation Cardiac: regular rate and rhythm, no murmurs noted Spine: normal Carotid arteries: negative bruit Extremities: no LE edema Large [place]- advised patient to shorten/trim; patient agreeable Lab Results Anesthesia Preop Results Results Anesthesia Widget: WBC 4.81 K/ul (4.8-10.8) 09/17/25 Hgb 13.5 g/dl (14.0-18.0) L 09/17/25 Hct 40.3 % (42.0-52.0) L 09/17/25 Plt 296 K/uL (130-400) 09/17/25 Na 136 mmol/L (136-145) 09/17/25 K 4.5 mmol/L (3.5-5.1) 09/17/25 Cl 102 mmol/L (98-107) 09/17/25 CO2 29 mmol/L (21-32) 09/17/25 BUN 13 mg/dl (6-23) 09/17/25 Creat 0.84 mg/dl (0.6-1.4) 09/17/25 Glucose Level 105 mg/dl (70-99(Fasting)) H 09/17/25 PT 10.8 Seconds (9.0-12.0) 09/17/25 PTT 23 Seconds (21-31) 09/17/25 INR 1.0 (0.9-1.1) 09/17/25 HA1c 7.0 % (4.5-5.6) H 09/17/25 Urine Color Yellow 09/17/25 Urine Appearance Clear (Clear) 09/17/25 Urine pH 6.0 (4.5-7.5) 09/17/25 Urine Specific [place] 1.009 (1.000-1.030) 09/17/25 Urine Protein Negative (Negative) 09/17/25 Urine Glucose (UA) Negative (Negative) 09/17/25 Urine Ketones Negative (Negative) 09/17/25 Urine Blood Negative (Negative) 09/17/25 Urine Nitrite Negative (Negative) 09/17/25 Urine Bilirubin Negative (Negative) 09/17/25 Urine Urobilinogen Negative (Negative) 09/17/25 Urine Leukocyte Esterase Negative (Negative) 09/17/25 Blood Type B Negative 09/17/25 Antibody Screen NEGATIVE 09/17/25 Testing Electrocardiogram Date: 11/12/24 SR with PACs at 71bpm. "Otherwise normal ECG" Echocardiogram Date: 01/21/25 EF 70%. Hyperdynamic LV with no RWMA. Mild cLVH. Asymmetric basal septal hypertrophy of the elderly. Grade I DD. Moderate LAD. Mild RAD. Borderline dilated ascending aorta for BSA, measuring 3.9 cm with index of 1.74cm/m2. Mild AI. Mild TR. Normal estimated PASP, estimated PASP 29mmhg.
--- NOTE | 2025-09-27 16:29 | History & Physical Report ---
Date of Service September 27, 2025 Assessment & Plan (1) Osteoarthritis of right knee: Plan: PRE-OP Diagnosis: Right knee osteoarthritis Planned Procedure: Right total knee arthroplasty Plan: Patient is scheduled to undergo this procedure at the [facility] with Dr. Berry on October 17, 2025. Risks and complications of the procedure such as: Infection, bleeding, pain, scarring, nerve blood vessel damage, weakness, wound problems, stiffness, incomplete relief of symptoms, hardware failure, hardware loosening, wear, fracture, tendon or ligament injury, blood clots, embolism, cardiac, stroke and were explained to the patient at his visit today and informed consent for the procedure was obtained. 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 Patient met with anesthesia on September 17 and while there obtained a CBC with differential, complete metabolic panel, PT/INR, blood type and screen, urinalysis, urine culture and sensitivity, EKG and a nasal culture for MRSA, as well as a hemoglobin A1c. During today's visit we reviewed the total knee packet. I provided the patient with paperwork to obtain obtaining a handicap placard for his vehicle. I provided him with information about lectures offered by [facility] in regards to joint replacement surgery. Patient states that he has a walker he will bring with him on the morning of surgery. I recommended that he purchase a shower chair and raised toilet seat. We discussed discharge planning from the hospital. Patient states he will most likely do in-home physical therapy for the first 2 weeks manage home care before transitioning to outpatient physical therapy in our clinic. I advised the patient that he will be provided with a prescription for narcotic pain medication for postoperative pain control. We will have him on Xarelto for the first 30 days postoperatively for blood clot prevention due to his previous history of DVT and PE. Patient verbalized understanding of all information provided during today's visit. Patient be scheduled for 2-week postoperative follow-up visit with myself on October 30. History of Present Illness Chief Complaint: Chief Complaint: Right knee pain Primary Care Provider: Robert Juares History of Present Illness (including history relevant to procedure): This 75-year-old male presents to the clinic today for his preoperative history and physical. Patient states that he has a history of having a right patellar tendon repair 2020 years ago. States that over the past few years he has seen another Ortho provider and has been diagnosed with moderate to severe osteoarthritis of the medial compartment. He states that he has bowleggedness. He has had corticosteroid injections without relief. He states that his knee range of motion is very limited making it very difficult for to stand for long periods of time in his workshop or walk down slight inclines. Due to failed conservative management and progression of his symptoms he is electing to proceed with surgical intervention. Review Of Systems: A 12 point review of systems is performed and is unremarkable except for those things stated in the HPI and past medical history. Past Medical History: Problems: Anemia Morbid obesity HLD (hyperlipidemia) HTN (hypertension) Diabetes mellitus with proteinuria Arthritis of right knee Arthritis of left shoulder Arrhythmia Hyponatremia Shoulder pain, right Elevated hematocrit Nocturia Thigh pain Proteinuria Joint pain Status post total replacement of left shoulder Right knee DJD Osteoarthrosis, wrist Arthritis of left shoulder region Procedure History Procedure Procedure Date Comments Primary repair of tendon - Patellar - 10yrs ago - Right Knee Hx of vasectomy Phacoemulsification of cataract with intraocular lens implantation 06/15/2023 - Left eye Arthroplasty of left shoulder 10/16/2020 Arthroplasty of left shoulder 09/19/2020 Diabetic retinal eye exam 08/21/2018 - no diabetic retinopathy at t his timeNo treatment is necessary at this time. Just yearly monitoring for any changes Ultrasound venous doppler lower ext bilateral 03/14/2017 - no evidence of lower extremity DVT CT angiogram of the chest 03/14/2017 - 1. extensive bilateral pulmonary emboli as above2. cardiomegaly and mild emphysema3. no airspace consolidation or pleural effusion is identified4. there are 2 nodules in the right lower lobe measuring up to 4 mm. These can be followed as per the fleischner criteria if clinically warranted. see below5. additional findings as above Chest x-ray 03/14/2017 - no acute cardiopulmonary findings Colonoscopy 11/21/2015 - Non- bleeding internal hemorrhoids. Diverticulosis in the sigmoid colon. No specimens collected. Wrist X-ray 05/14/2015 - No acute Fracture or dislocation within the right wrist.Scapholunate disassociationDegenerative changes as decribed CXR - Chest X-ray 05/14/2015 - There is an acute right anterior 7th rib fracture. No definate additional Fracture are seen.Trace right pleural effusion and atelectasis. The lungs are otherwise clear Allergies and Sensitivities: No Known Medication Allergies avocados(nausea) Current Home Meds: (Last Updated 08/21 11:18) amoxicillin (amoxicillin 500 mg oral capsule) TAKE 4 CAPSULES BY MOUTH ONE HOUR PRIOR TO DENTAL APPOINTMENT AND OTHER PROCEDURES DIRECTED ascorbic acid (Vitamin C) aspirin (aspirin 81 mg oral delayed release tablet) 81 mg PO Daily cetirizine (ZyrTEC) 10 mg PO Daily chondroitin-glucosamine (chondroitin-glucosamine 1.2 g-1.5 g oral capsule) diabetes supplies (One Touch Ultra Glucose Monitor Kit) home glucose check daily and prnDx; E11.9 diabetes supplies (One Touch Ultra Blue Test Strips) home glucose check daily and prnDx; E11.9 diabetes supplies (One Touch Delica Plus (33G) Lancets) home glucose check daily and prnDx; E11.9 inhalation accessory (Aerochamber) use with albuterol inhaler lisinopril (lisinopril 20 mg oral tablet) 20 mg PO Daily metFORMIN (metFORMIN 850 mg oral tablet) TAKE 1 TABLET BY MOUTH TWO TIMES DAILY WITH MEALS metoprolol (metoprolol succinate 25 mg oral tablet, extended release) 25 mg PO qhs pravastatin (pravastatin 20 mg oral tablet) 1 tab PO qhs semaglutide (Ozempic (2 mg dose) 8 mg/3 mL subQ pen) 2 mg subQ q7days INTO THE ABDOMEN, THIGH OR UPPER ARM. ubiquinone (Coenzyme Q10 200 mg oral capsule) 1 tab PO Daily Allergies Allergy/AdvReac Type Severity Reaction Status Date / Time pollen extracts Allergy Intermediate Itchy Verified 09/11/25 08:42 eyes, runny nose, sneezing avocado AdvReac Intermediate GI upset Verified 09/06/25 13:40 Home Medications Medication Instructions Recorded Confirmed Type aspirin 81 mg tablet,delayed 81 mg PO QAM 09/03/20 09/06/25 History release cetirizine 10 mg disintegrating 10 mg PO QAM 09/03/20 09/06/25 History tablet (Zyrtec) kkaozkkbptk-jcx-murvtgsen-vitC 1 cap PO BID 09/03/20 09/06/25 History capsule (Glucosamine Complex-MSM capsule) ascorbic acid (vitamin C) 1,000 mg 1 cap PO DAILY 10/16/20 09/06/25 History capsule,extended release pravastatin 20 mg tablet 20 mg PO QPM 06/06/23 09/06/25 History semaglutide 0.25 mg or 0.5 mg (2 2 mg subcut WK 06/06/23 09/06/25 History mg/3 mL) subcutaneous pen injector (Ozempic) lisinopril 20 mg tablet 20 mg PO PM 09/06/25 09/06/25 History metformin 850 mg tablet 850 mg PO BID 09/06/25 09/06/25 History metoprolol succinate 25 mg 25 mg PO PM 09/06/25 09/06/25 History tablet,extended release 24 hr Past Med/Surg History Problem List (Updated 09/27/25 @ 16:27 by Varun Chapman PA-C) Osteoarthritis of right knee Encounter for pre-operative examination Hypertension (Chronic) Medical History Hyperlipidemia PVCs (premature ventricular contractions) "Mild" Anemia History of atrial fibrillation (2016) "Related to blood clots" History of DVT (deep vein thrombosis) RLE (2016) after flight, previously on AC/since discontinued Hx pulmonary embolism (2017) after flight, previously on AC/since discontinued Obesity Arthritis Diabetes mellitus, type 2 Hypertension Surgical History History of cataract surgery R/L History of left shoulder replacement History of tooth extraction WTE History of knee surgery Right tendon repair History of colonoscopy Family History Father Family history of diabetes mellitus Social History Smoking Status: Never smoker Second Hand Exposure: Yes (childhood); Do You Dip or Chew Tobacco: No; Hx Alcohol Use: Yes Alcohol type: hard liquor Hx Substance Use: No Preferred Language: Irish Communication Ability: Effective Visual Impairment: No Limitations 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 Extraocular movements are intact Throat: Posterior pharynx clear without some edema, erythema or exudate Cardiac: Regular rate with an irregular rhythm. No murmurs or gallops appreciated Lungs: Clear to auscultation throughout with no wheezing, rales or rhonchi Abdomen: Obese, nondistended, nontender with normal active bowel sounds Extremities: Right knee; ROM: 3 to 90 1+ effusion Varus malalignment Posterior medial joint line tenderness Mild lateral joint line tenderness Lateral facet tenderness Non tender on medial facet tenderness Ligament exam: Negative Posterior drawer Stable to Varus and Valgus stress at 30. Well healed incision from prior patellar tendon repair Neuro: Cranial nerves II through XII are intact no motor or sensory deficit Skin: Normal appearance no open skin areas or discharge Results & Data Diagnostic Findings Studies (relevant to the procedure): 3views of theright kneeobtained today and personally interpreted by me taken at [facility] show no fractures with appropriates patellar height. He has large osteophytes in the knee. Bone on bone arthritis on the inside of right knee compared to outside of left knee. Left gunjan e neutral alignment and varus mal-alignment in the right.
[~2025-10-17 08:34] MED LIST changes: +BUPIVACAINE 0.5 % 5 MG/1 ML PF 10ML VIAL ONE; -GLC500 PO; -LISI20TA PO; +PROPOFOL IV EMULSION 10 MG/ML 100 ML VIAL IV ONE; +ROPIVACAINE 0.5% 5 MG/ML 30 ML VIAL ONE
[2025-10-17] MEDS ORDERED: MIDAZOLAM HCL 1 MG/ML 2ML VIAL ONE ×2 (08:58→10:07)
[2025-10-17] MEDS ORDERED: LIDOCAINE 2% 2 ML VIAL/AMP(20MG/ML) INFIL ONE (08:58)
[2025-10-17] MEDS: FAMOTIDINE 20 MG TAB PO SCH (09:04)
[2025-10-17] MEDS: CeleBREX 200 MG CAP PO SCH (09:04)
[2025-10-17] MEDS: ACETAMINOPHEN 500 MG TAB PO SCH ×2 (09:04→21:08)
[2025-10-17] MEDS: LR 60ML/HR IV SCH (09:05)
[2025-10-17] MEDS: dexAMETHasone**PF** 10 MG/ML VIAL IV SCH (09:17)
[2025-10-17] MEDS: LR 500ML BOLUS, THEN 15ML/HR IV SCH (09:17)
[2025-10-17] MEDS ORDERED: HYDROmorphone INJ 1 MG/ML SYRINGE IV PRN (09:50)
[2025-10-17] MEDS ORDERED: PROMETHAZINE HCL 6.25 MG in SODIUM CHLORIDE 0.9% 50 ML IV PRN (09:50)
[2025-10-17] MEDS ORDERED: ATROPINE SULFATE 0.1 MG/ML 10ML SYR IV PRN (09:50)
[2025-10-17] MEDS ORDERED: ONDANSETRON INJ 2 MG/ML 2 ML VIAL IV PRN ×2 (09:50→12:26)
--- NOTE | 2025-10-17 10:07 | History & Physical Bridge Note ---
Date of Service October 17, 2025 History & Physical Bridge Note I have examined the patient, reviewed the History & Physical and in the interval since the performance of the History & Physical I have noted the following changes of clinical significance: no changes noted
[2025-10-17] MEDS: TRANEXAMIC ACID 1,000 MG **IV Pre-op IV SCH (10:21)
[2025-10-17] MEDS: ORTHO JOINT ANESTHETIC ONE (11:11)
[2025-10-17] MEDS: ROPIVACAINE 0.5% HCL/PF 246 MG, Ketorolac (*for OR use only*) 30 MG, EPINEPHrine 30MG/3... INFIL SCH (11:11)
--- NOTE | 2025-10-17 12:24 | Operative Report ---
Post Operative Report Pre & Post Diagnosis Operation Date: 10/17/25 10:25 Pre-Op Diagnosis: Right Knee Osteoarthritis Post-Op Diagnosis: Right Knee Osteoarthritis I identified the patient and participated in the time-out.: Yes Procedure Operation Date: 10/17/25 10:25 Actual Procedures p Right Total Knee Arthroplasty(Right) - Ziggy Berry MD Surgeon Ziggy Berry MD Manager Health Zack Chapman PAAric Estimated Blood Loss 50 Findings Consistent with Post-Op Diagnosis Specimens Right knee bone and soft tissue Description of Procedure I was present during the entire case assisting with positioning, prepping, draping, wound retraction, wound closure, dressing and immobilizer placement. No fellow present. Please see Dr. Berry operative note for specifics of the case. I attest to the content of the Intraoperative Record and any orders documented therein. Any exceptions are noted below.
--- NOTE | 2025-10-17 12:25 | Operative Report ---
Post Operative Report Pre & Post Diagnosis Operation Date: 10/17/25 10:25 Preoperative diagnosis: Right knee osteoarthritis. Postop diagnosis: Right knee osteoarthritis I identified the patient and participated in the time-out.: Yes Procedure Operation Date: 10/17/25 10:25 Right total knee arthroplasty Surgeon Ziggy Berry MD Switchboard Clerk DAILY Chapman PA-C. No resident or fellow was available to assist. Estimated Blood Loss 50 Findings Consistent with Post-Op Diagnosis Specimens Right knee bone and soft tissue contents Anesthesia Type Spinal MAC Complications none Disposition Disposition: Recovery Room Indications 75-year-old male with right knee osteoarthritis refractory to conservative management. He has a history of a right knee surgery many years ago, likely meniscectomy. X-rays demonstrate severe osteoarthritis and varus malalignment. I had a long discussion with him about his diagnosis and treatment options. I reviewed the risks and benefits of surgery, alternatives to surgery, and expected outcomes. After reviewing all of his options he elected to proceed with surgery. All questions were answered. Informed consent was signed. Description of Procedure Patient was identified in the preoperative holding area where the surgical site, right knee, was marked. Spinal anesthetic was placed by anesthesia. Patient was brought back to the operating room, placed on the operating room table, and IV sedation was administered. A bump was placed underneath the ipsilateral hip. All bony prominences were padded. Perioperative antibiotics and tranexamic acid were administered. Exam under anesthesia was performed. This demonstrated range of motion arc from 12 to 95 degrees. Stable to varus and valgus at 30 degrees. The surgical site was prepped and draped in the normal sterile fashion. His previous skin incision was marked out using a marker. Prior to incision a multidisciplinary timeout was called. All in the room were in agreement. We began by exsanguinating the limb with an Esmarch bandage. Tourniquet was inflated to 250 mmHg. A 14 cm long incision was made over the anterior aspect of the knee, including his prior incision and extending proximal and distal to this. I dissected through the subcutaneous tissues to the level of the fascia. Tissues were slightly thickened secondary to prior surgery and scarring. Full- thickness flaps were raised above the fascia. A median parapatellar arthrotomy was made. Half the fat pad was excised. A medial release was performed with Bovie electrocautery on the proximal tibia. Synovitis in the knee and suprapatellar pouch was removed. The patella was then everted and held with 2 towel clips. The thickness of the patella was measured at 27 mm. Patellar resection was performed. Caliper showed the patella thickness now to be 16 mm. A size 41 trial was placed and had a great fit. The 3 drill holes were placed then the trial button was placed. The patellar thickness was now 27 mm which I was very happy with. The patellar trial was then removed, and the knee was flexed up. Retractors were placed to protect the MCL and LCL. Osteophytes were removed from the femoral condyles and intercondylar notch. The ACL and PCL were excised. Intramedullary drill guide was drilled into the femur. Distal femoral cutting guide was placed set at 5 degrees of valgus to resect 12 mm off the distal femur. Distal femoral resection was made without difficulty. The tibia was then exposed. The lateral meniscus was sharply excised. The tibial cutting jig was positioned in line with the tibial shaft in the coronal plane and with 3 degrees of posterior slope in the sagittal plane to resect 4 mm off the more involved compartment. The jig was then pinned in position and the tibial cut was made. We then brought the knee into full extension. Lamina spreaders were placed. The medial meniscus was excised. The extension block was then placed for 5 mm thickness poly. This gave us full extension and excellent stability to varus and valgus stress. He was a little tight medially in extension so I released the posterior medial capsule off the bone and removed osteophyte from the tibia in this location which corrected the issue. Next the extension block was removed, the knee was flexed up, collateral ligaments were protected, and the epicondylar axis and Whitesides line were marked out on the distal femoral cut. Femoral sizing guide was placed. External rotation was set at 3 degrees so that the posterior cut would be parallel with the epicondylar axis and perpendicular with Whitesides line. The patient sized to a size 7 femur. 2 pins were then placed through the jig into the distal femur. The jig was removed and the appropriately sized 4-in-1 cutting jig was placed over the pins, then fixated to the bone using threaded, headed pins. We confirmed that we would not notch the femur with our anterior cut. Our 4 cuts were then made. The cutting jig was removed. The flexion block was then placed with the knee held at 90 degrees. There was excellent stability to varus and valgus at 90 degrees with no gapping medially or laterally. Next the box cutting jig was placed on the distal femur. The box cut was made and the femoral trial was impacted into position. Lug holes were drilled in the distal femur. We then reexposed the tibia. The tibia was sized to a 7 for a fixed bearing component and pinned in external rotation on the cut tibial surface. The intramedullary drill followed by the keel punch were used to prepare the tibia. The tibial tray with a 5 mm thickness polyethylene liner was placed and the knee was brought through a full range of motion. There was excellent stability to varus valgus stress throughout a full range of motion, which was approximately 0-120 degrees. Next the trial components were removed. I then injected the posterior capsule and periosteum with the periarticular injection cocktail. The bone cuts were then irrigated and dried while the cement was mixed on the back table. The femoral component was cemented on first. Excess cement was removed. A lap sponge was placed over the femoral component for protection, then the tibia was subluxated anteriorly. The all polyethylene tibial component was then cemented in place. Again excess cement was removed. The knee was brought into full extension and held there until the cement cured. The patella was cemented and clamped. Dilute Betadine solution was then allowed to soak in the knee while the cement cured. Once the cement was fully cured, the knee was irrigated out, the tourniquet was let down and meticulous hemostasis was ensured. The knee was brought through a full range of motion. I was were very happy with the patella tracking and the stability. We then began to close. Interrupted 0 Vicryl suture was used to repair the patellar retinaculum in [id number] fashion. The quadriceps and patellar tendons were run with #1 Vicryl. The deep dermal layer was closed with interrupted 2-0 Vicryl. Dermabond and Zipline was used for the skin, followed by a Silverlon dressing. A compressive Gabriel wrap was placed and the knee was placed into a knee immobilizer. Patient's sedation was lifted and was transferred to recovery room in stable condition. Summary of implants: Depuy Attune Posterior Stabilized Cemented Femur, size 7 right Attune All-polyethylene tibial component, posterior stabilized 5 mm thickness, size 7 Attune patella medialized dome, size 41 2 batches of Palacos bone cement Postoperative course: Patient will be admitted to the floor for pain control and monitoring. Weightbearing as tolerated with a walker with no knee range of motion for 48 hours. Aspirin for DVT prophylaxis. I attest to the content of the Intraoperative Record and any orders documented therein. Any exceptions are noted below.
[2025-10-17] MEDS ORDERED: MAGNESIUM HYDROXIDE SUSP 30 ML UDC PO PRN (12:26)
[2025-10-17] MEDS ORDERED: METOCLOPRAMIDE HCL INJ 5 MG/ML 2 ML VIAL IV PRN (12:26)
[2025-10-17] MEDS ORDERED: HYDROmorphone INJ 0.5 MG/0.5 ML SYR IV PRN (12:26)
[2025-10-17] MEDS ORDERED: NALOXONE HCL 0.4 MG/1 ML VIAL/CARP IV PRN (12:26)
[2025-10-17] MEDS ORDERED: ALUMINUM/MAGNESIUM SUSP 30 ML UDC PO PRN (12:26)
[2025-10-17] MEDS ORDERED: TAMSULOSIN HCL 0.4 MG CAP PO PRN (12:26)
[2025-10-17] MEDS ORDERED: diphenhydrAMINE 50 MG/ML VIAL IV PRN (12:26)
--- NOTE | 2025-10-17 13:03 | XRay Report ---
XR knee RT 1 or 2V routine CLINICAL HISTORY: Postoperative evaluation. COMPARISON: Right knee radiographs September 25, 2025. FINDINGS: Alignment of the total right knee arthroplasty is anatomic. There is no periprosthetic fra cture or unexpected radiopaque foreign body. Polyethylene tibial component is noted. IMPRESSION: Expected findings following total right knee arthroplasty. ACT 112: Negative or not required by law. Electronically signed by: John Spicer M.D. 10/17/2025 1:02 PM
[2025-10-17] MEDS ORDERED: NON-FORMULARY MEDICATION (Semaglutide [Ozempic] 0.25 mg or 0.5 mg (2 mg/3 mL) Pen Injector SQ SCH (14:13)
--- NOTE | 2025-10-17 14:31 | Anesthesiology Progress Note ---
Date of Service October 17, 2025 Anesthesia Post Procedure Vital Signs Vital Signs: Temp Pulse Pulse Resp BP Pulse Ox O2 Del Method 10/17/25 14:30 36.3 C L 50 L 129/70 98 Room Air 10/17/25 14:00 36.6 C 54 L 16 114/66 94 Room Air 10/17/25 13:55 54 L 21 127/91 93 Room Air 10/17/25 13:45 36.5 C 56 L 17 127/59 L 94 Room Air 10/17/25 13:35 53 L 16 123/58 L 94 Room Air 10/17/25 13:25 50 L 18 125/58 L 93 Room Air 10/17/25 13:15 46 L 17 129/58 L 92 Room Air 10/17/25 13:05 53 L 19 125/64 94 Room Air 10/17/25 12:55 46 L 16 118/52 L 94 Room Air 10/17/25 12:45 54 L 14 113/65 93 Room Air 10/17/25 12:35 51 L 18 111/58 L 91 Room Air 10/17/25 12:25 36.0 C L 63 19 108/68 93 Oxymask 10/17/25 08:55 36.4 C L 65 20 151/78 H 96 Room Air O2 Flow Rate 10/17/25 14:30 10/17/25 14:00 10/17/25 13:55 10/17/25 13:45 10/17/25 13:35 10/17/25 13:25 10/17/25 13:15 10/17/25 13:05 10/17/25 12:55 10/17/25 12:45 10/17/25 12:35 10/17/25 12:25 4 10/17/25 08:55 Pain Intensity Right Knee: Pain Intensity: 0 Transfer of Care Handoff Completed per policy Notes Mental Status: alert / awake / arousable Patient Amnestic to Procedure: Yes Nausea / Vomiting: adequately controlled Pain: adequately controlled Airway Patency, RR, SpO2: stable & adequate BP & HR: stable & adequate Hydration State: stable & adequate Anesthetic Complications: no major complications apparent
[2025-10-17] MEDS: KETOROLAC TROMETHAMINE 15 MG/ML VIAL IV SCH (14:39)
[2025-10-17] MEDS: SODIUM CHLORIDE 0.9% 1,000 ML IV SCH (15:17)
[2025-10-17] MEDS: Scopolamine CHECK PATCH PLACEMENT SCH (16:43)
[2025-10-17] MEDS ORDERED: NON-FORMULARY MEDICATION (Glucosamine-Msm-Magnesium-Vitc [Glucosamine Complex-Msm] Capsule PO SCH (21:00)
[2025-10-17] MEDS: PRAVASTATIN SOD 20 MG TAB PO SCH (21:08)
[2025-10-17] MEDS: DOCUSATE SODIUM 100 MG CAP PO SCH (21:08)
[2025-10-17] MEDS: SENNA 8.6 MG TAB PO SCH (21:09)
[2025-10-17] MEDS: METOPROLOL SUCC 25MG EXT REL TAB PO SCH (21:09)
[2025-10-18 05:02] LABS: Hematocrit (blood only) 31.2 % (42.0-52.0); Hemoglobin 10.6 g/dL (14.0-18.0); Mean Corpuscular Hemoglobin 27.2 pg (25.0-34.0); Mean Corpuscular Volume 80.0 fL (80.0-100.0); Platelet Count 268 K/uL (130-400); RDW Standard Deviation 44.6 fL (36.4-46.3); Red Blood Count 3.90 M/uL (4.70-6.10); White Blood Count 9.27 K/ul (4.8-10.8)
[2025-10-18 05:19] LABS: Anion Gap 7.0 (3-11); Blood Urea Nitrogen 16.0 mg/dl (6-23); Calcium 8.1 mg/dl (8.6-10.3); Carbon Dioxide 20.0 mmol/L (21-32); Chloride 102.0 mmol/L (98-107); Creatinine Clr Calc Pharmacy 78.2 ml/min; Glucose 175.0 mg/dl (70-99(Fasting)); Potassium 3.6 mmol/L (3.5-5.1); Sodium 129.0 mmol/L (136-145)
[2025-10-18 07:51] VITALS: TEMP 97.7
[2025-10-18 07:54] VITALS: BP 120/62; PULSE 63; RESP 16; O2SAT 98
[2025-10-18] MEDS: dexAMETHasone 10 MG in SYRINGE 0 ML IV SCH (08:53)
[2025-10-18] MEDS: ASCORBIC ACID 500 MG TAB PO SCH (08:54)
[2025-10-18] MEDS: CETIRIZINE HCL 10 MG TABLET PO SCH (08:54)
[2025-10-18] MEDS: ASPIRIN 81 MG ECTAB PO SCH (08:54)
[2025-10-18] MEDS: MULTIVITAMIN TAB PO SCH (08:55)
--- NOTE | 2025-10-18 08:57 | Orthopedic Progress Note ---
Date of Service October 18, 2025 Assessment & Plan (1) S/P total knee arthroplasty: Plan: Weightbearing as tolerated with walker assistance Immobilizer use x 48 hours postop Keep Silverlon dressing in place until follow-up Ice with easy wrap Pain control with p.o. medication DVT prophylaxis with LILLIAM stockings and aspirin PT/OT Plans to discharge home today with in-home physical therapy for the first 2 weeks Follow-up with [facility] orthopedics as previously scheduled With questions contact our clinic at [phone] Admission and Anticipated Discharge Date Admission Date: October 17, 2025 Subjective This 75-year-old male is day 1 status post right total knee arthroplasty. He states he is doing very well. He states his pain is well-controlled with p.o. pain medication. He is currently off with his walker ambulating around his room. He states that he has been able to entire lap around the halls as well. He is hoping to be discharged home later this morning after he completes PT/OT. Patient denies chest pain, shortness of breath, fever, chills, sweats, nausea, vomiting, diarrhea, difficulty voiding or numbness or tingling in his right lower extremity. Review of Systems Review of Systems: All systems reviewed & are unremarkable except as noted in Subjective Physical Exam Physical Exam: Right knee: Outer dressing was removed. Silverlon is clean dry intact and left in place. Patient is able to easily transition from a seated to a standing position with his walker. He is able to ambulate around his room without significant discomfort. Immobilizer was removed and patient was able to reach 0 degrees of extension and about 80 degrees of flexion actively. He is able to perform active straight leg raise test. He is able to actively dorsi and plantarflex his foot. His quad strength is 4+ out of 5. He is neurovascularly intact in the right lower extremity. Results & Data Vital Signs (Past 12 Hours) Vital Signs Temp Pulse Pulse Resp BP BP Pulse Ox 10/18/25 07:52 36.5 C 63 16 120/62 98 10/18/25 07:50 36.5 C 55 L 18 112/54 L 96 10/18/25 05:10 36.8 C 68 16 132/55 L 96 10/18/25 01:10 37.0 C 76 18 137/69 96 10/17/25 21:13 61 126/63 O2 Del Method 10/18/25 07:52 Room Air 10/18/25 07:50 Room Air 10/18/25 05:10 Room Air 10/18/25 01:10 Room Air 10/17/25 21:13 Diagnostic Findings Laboratory Results WBC 9.27 K/ul (4.8-10.8) 10/18/25 04:27 RBC 3.90 M/uL (4.70-6.10) L 10/18/25 04:27 Hgb 10.6 g/dL (14.0-18.0) L 10/18/25 04:27 Hct 31.2 % (42.0-52.0) L 10/18/25 04:27 MCV 80.0 fL (80.0-100.0) 10/18/25 04:27 MCH 27.2 pg (25.0-34.0) 10/18/25 04:27 MCHC 34.0 g/dL (32.0-36.0) 10/18/25 04:27 RDW Std Deviation 44.6 fL (36.4-46.3) 10/18/25 04:27 RDW Coeff of Esvin 15.3 % (11.5-14.5) H 10/18/25 04:27 Plt Count 268 K/uL (130-400) 10/18/25 04:27 MPV 9.4 fL (9.4-12.4) 10/18/25 04:27 Sodium 129 mmol/L (136-145) L 10/18/25 04:27 Potassium 3.6 mmol/L (3.5-5.1) 10/18/25 04:27 Chloride 102 mmol/L (98-107) 10/18/25 04:27 Carbon Dioxide 20 mmol/L (21-32) L 10/18/25 04:27 Anion Gap 7 (3-11) 10/18/25 04:27 BUN 16 mg/dl (6-23) 10/18/25 04:27 Creatinine 0.96 mg/dl (0.6-1.4) 10/18/25 04:27 Est Cr Clr Drug Dosing 78.2 ml/min 10/18/25 04:27 eGFR 83.46 10/18/25 04:27 BUN/Creatinine Ratio 16.7 (10-20) 10/18/25 04:27 Glucose 175 mg/dl (70-99(Fasting)) H 10/18/25 04:27 POC Glucose 151 mg/dl (70-99) H 10/18/25 07:38 Calcium 8.1 mg/dl (8.6-10.3) L 10/18/25 04:27 Impressions Knee X-Ray 10/17/25 12:26 XR knee RT 1 or 2V routine CLINICAL HISTORY: Postoperative evaluation. COMPARISON: Right knee radiographs September 25, 2025. FINDINGS: Alignment of the total right knee arthroplasty is anatomic. There is no periprosthetic fracture or unexpected radiopaque foreign body. Polyethylene tibial component is noted. IMPRESSION: Expected findings following total right knee arthroplasty. ACT 112: Negative or not required by law. Electronically signed by: John Spicer M.D. 10/17/2025 1:02 PM
--- NOTE | 2025-10-18 09:00 | Discharge Summary ---
Date of Service October 18, 2025 Admission HPI Per Admitting Provider History of Present Illness (including history relevant to procedure): This 75-year-old male presents to the clinic today for his preoperative history and physical. Patient states that he has a history of having a right patellar tendon repair 2020 years ago. States that over the past few years he has seen another Ortho provider and has been diagnosed with moderate to severe osteoarthritis of the medial compartment. He states that he has bowleggedness. He has had corticosteroid injections without relief. He states that his knee range of motion is very limited making it very difficult for to stand for long p eriods of time in his workshop or walk down slight inclines. Due to failed conservative management and progression of his symptoms he is electing to proceed with surgical intervention. Review Of Systems: A 12 point review of systems is performed and is unremarkable except for those things stated in the HPI and past medical history. Past Medical History: Problems: Anemia Morbid obesity HLD (hyperlipidemia) HTN (hypertension) Diabetes mellitus with proteinuria Arthritis of right knee Arthritis of left shoulder Arrhythmia Hyponatremia Shoulder pain, right Elevated hematocrit Nocturia Thigh pain Proteinuria Joint pain Status post total replacement of left shoulder Right knee DJD Osteoarthrosis, wrist Arthritis of left shoulder region Procedure History Procedure Procedure Date Comments Primary repair of tendon - Patellar - 10yrs ago - Right Knee Hx of vasectomy Phacoemulsification of cataract with intraocular lens implantation 06/15/2023 - Left eye Arthroplasty of left shoulder 10/16/2020 Arthroplasty of left shoulder 09/19/2020 Diabetic retinal eye exam 08/21/2018 - no diabetic retinopathy at t his timeNo treatment is necessary at this time. Just yearly monitoring for any changes Ultrasound venous doppler lower ext bilateral 03/14/2017 - no evidence of lower extremity DVT CT angiogram of the chest 03/14/2017 - 1. extensive bilateral pulmonary emboli as above2. cardiomegaly and mild emphysema3. no airspace consolidation or pleural effusion is identified4. there are 2 nodules in the right lower lobe measuring up to 4 mm. These can be followed as per the fleischner criteria if clinically warranted. see below5. additional findings as above Chest x-ray 03/14/2017 - no acute cardiopulmonary findings Colonoscopy 11/21/2015 - Non- bleeding internal hemorrhoids. Diverticulosis in the sigmoid colon. No specimens collected. Wrist X-ray 05/14/2015 - No acute Fracture or dislocation within the right wrist.Scapholunate disassociationDegenerative changes as decribed CXR - Chest X-ray 05/14/2015 - There is an acute right anterior 7th rib fracture. No definate additional Fracture are seen.Trace right pleural effusion and atelectasis. The lungs are otherwise clear Allergies and Sensitivities: No Known Medication Allergies avocados(nausea) Current Home Meds: (Last Updated 08/21 11:18) amoxicillin (amoxicillin 500 mg oral capsule) TAKE 4 CAPSULES BY MOUTH ONE HOUR PRIOR TO DENTAL APPOINTMENT AND OTHER PROCEDURES DIRECTED ascorbic acid (Vitamin C) aspirin (aspirin 81 mg oral delayed release tablet) 81 mg PO Daily cetirizine (ZyrTEC) 10 mg PO Daily chondroitin-glucosamine (chondroitin-glucosamine 1.2 g-1.5 g oral capsule) diabetes supplies (One Touch Ultra Glucose Monitor Kit) home glucose check daily and prnDx; E11.9 diabetes supplies (One Touch Ultra Blue Test Strips) home glucose check daily and prnDx; E11.9 diabetes supplies (One Touch Delica Plus (33G) Lancets) home glucose check daily and prnDx; E11.9 inhalation accessory (Aerochamber) use with albuterol inhaler lisinopril (lisinopril 20 mg oral tablet) 20 mg PO Daily metFORMIN (metFORMIN 850 mg oral tablet) TAKE 1 TABLET BY MOUTH TWO TIMES DAILY WITH MEALS metoprolol (metoprolol succinate 25 mg oral tablet, extended release) 25 mg PO qhs pravastatin (pravastatin 20 mg oral tablet) 1 tab PO qhs semaglutide (Ozempic (2 mg dose) 8 mg/3 mL subQ pen) 2 mg subQ q7days INTO THE ABDOMEN, THIGH OR UPPER ARM. ubiquinone (Coenzyme Q10 200 mg oral capsule) 1 tab PO Daily Admission Exam Per Admitting Provider Initial Wt: 09/25 97.5 kg 215 lb Physical Exam: (relevant to the procedure, including heart and lung evaluation) General: Alert and oriented x 3 with proper grooming and hygiene Eyes: Pupils are equal reactive to light with accommodation. Extraocular movements are intact Throat: Posterior pharynx clear without some edema, erythema or exudate Cardiac: Regular rate with an irregular rhythm. No murmurs or gallops appreciated Lungs: Clear to auscultation throughout with no wheezing, rales or rhonchi Abdomen: Obese, nondistended, nontender with normal active bowel sounds Extremities: Right knee; ROM: 3 to 90 1+ effusionVarus malalignment Posterior medial joint line tenderness Mild lateral joint line tenderness Lateral facet tenderness Non tender on medial facet tenderness Ligament exam: Negative Posterior drawer Stable to Varus and Valgus stress at 30. Well healed incision from prior patellar tendon repair Neuro: Cranial nerves II through XII are intact no motor or sensory deficit Skin: Normal appearance no open skin areas or discharge Principal Diagnosis Right knee osteoarthritis Discharge Exam Right knee: Outer dressing was removed. Silverlon is clean dry intact and left in place. Patient is able to easily transition from a seated to a standing position with his walker. He is able to ambulate around his room without significant discomfort. Immobilizer was removed and patient was able to reach 0 degrees of extension and about 80 degrees of flexion actively. He is able to perform active straight leg raise test. He is able to actively dorsi and plantarflex his foot. His quad strength is 4+ out of 5. He is neurovascularly intact in the right lower extremity. Discharge Data Allergies Allergy/AdvReac Type Severity Reaction Status Date / Time pollen extracts Allergy Intermediate Itchy Verified 10/17/25 08:55 eyes, runny nose, sneezing avocado AdvReac Intermediate GI upset Verified 10/17/25 08:55 Procedures Performed Operation Date: 10/17/25 10:25 Actual Procedures p Right Total Knee Arthroplasty(Right) - Ziggy Berry MD Ordered Studies 10/17/25 05:00 US - OR guided needle placemen Routine Hospital Course (1) S/P total knee arthroplasty: Patient had an uneventful overnight stay following right total knee arthroplasty. He is very pleased with results of surgery. He states that his pain is much less now than it was prior to surgery. He is ready for discharge after completing PT and OT. He states that he is doing in-home physical therapy for the first 2 weeks postoperatively. Weightbearing as tolerated with walker assistance Immobilizer use x 48 hours postop Keep Silverlon dressing in place until follow-up Ice with easy wrap Pain control with p.o. medication DVT prophylaxis with LILLIAM stockings and aspirin PT/OT Plans to discharge home today with in-home physical therapy for the first 2 weeks Follow-up with [facility] orthopedics as previously scheduled With questions contact our clinic at [phone] Total Time Total Time Spent Total Time Spent (In Minutes): 20 mins Discharge Plan Discharge Items Patient Disposition: Home - Home Health Services Reason For Visit: Right Knee Osteoarthritis Discharge Diagnosis: s/p Right total knee arthroplasty Activity: As commented below Lifting: None Bathing: Keep incision dry Bathing Comment: May shower today Sexual Activity: Wait until after follow-up appointment Exercise/Sports: Wait until after follow-up appointment Driving/Machine Use: No driving until cleared by database management specialist Weightbearing: Right weightbearing Weightbearing Comment: As tolerated with walker assistance Non-emergency contact: Surgeon Call non-emergency contact if: you have any medication questions, your pain is not controlled, your temperature is above 101.5, your wound has increased drainage and your wound pain has increased Follow-up/Referrals: Robert Juares [Primary Care Provider] - Diet: Carb Consistent or DM2 Addtl Attending Provider Instructions: Post-operative Instructions Dear Patient and Family/Friends, Before you are discharged from the hospital, it is important to know what to expect when you get home after surgery. To that end, we have created this sheet of discharge instructions which covers many commonly asked questions. Make sure you go through this sheet in its entirety with your nurse before you are discharged. Please note that we will go over the specifics of your surgery and recovery when you return for your first post-operative visit. Sincerely, Dr. Berry Medications 1. Oxycodone 5 mg: Take 1 to 2 tablets every 4-6 hours as needed for postoperative pain control. A prescription for this medication will be sent to your pharmacy. 2. Diclofenac sodium 75 mg: Take 1 tablet twice daily for the first 30 days postoperatively for pain and inflammation relief. A prescription for this medication will be sent to your pharmacy with 1 refill. 3. Aspirin 81 mg: Increase your daily aspirin to twice daily for the first 30 days postoperatively for blood clot prevention. 4. Extra strength Tylenol 500 mg: Take 2 tablets every 6-8 hours as needed for additional pain relief. Please purchase this medication. Pain Expect to be in a fair amount of pain after surgery. Remember, our goal is not to eliminate your pain, but to make it tolerable. It is a good idea to stay ahead of your pain by taking the medications you were prescribed once you get home. Typically, the pain starts improving 3-7 days after surgery. You should start weaning off the narcotic pain medication (oxycodone, hydrocodone, hydromorphone, morphine) as soon as your pain improves. Please call our office if your pain is not adequately controlled. Ice Ice your operative site at least 5 times a day for 15-30 minutes at a time. Make sure you have a thin cloth between the ice or cooling unit and your skin to prevent olsen bite. This is especially important if you received a nerve block. Continue icing your operative site for the first 5-7 days after surgery, then as needed. Diet/Nausea/Vomiting Start by drinking clear liquids and eating crackers. If you can tolerate this, then you may resume your normal diet. If you feel nauseated or vomit, take Zofran/ondansetron (if prescribed). Please call our office if you have intractable nausea or vomiting, or, if after hours, you may go to the Emergency Room for help. Constipation Constipation is a common side effect of narcotic pain medication. If you have not had a bowel movement within 2 days after surgery, we recommend purchasing an over the counter laxative such as Milk of Magnesia, Dulcolax, or Miralax from a local pharmacy, and taking it as instructed. Call our clinic if any questions. Slings and Braces If you were placed in a sling or brace, it must be worn at all times, including sleep. You may remove your sling or brace for physical therapy, home exercises, and showering. The length of time you will be in your brace and range of motion restrictions depends on what surgery you had; these details will be reviewed at your first post-operative appointment. Nerve block The anesthesia team sometimes places a nerve block to help with post-operative pain control. This results in significant numbness and inability to move the extremity. The nerve block usually wears off in 8-12 hours, but sometimes can last up to 24 hours. Please call our office if you are still unable to move your extremity after 24 hours, unless you received a pain pump to take home. Nerve blocks typically wear off quickly, so start taking pain medication as soon as you start feeling soreness near your surgical site. Weight bearing and Range of Motion. Do not bear any weight through your operative extremity immediately after surgery. If you had upper extremity surgery, do not lift anything with that arm. If you are in a knee brace, keep it locked in place until your follow-up. We will discuss your weight bearing, range of motion, and lifting restrictions in detail at your first post-operative appointment. Continuous Passive Motion (CPM) Machine If you were prescribed a CPM machine, it will start after your first post- operative appointment, at which time we will give you instructions on the range of motion settings and duration of treatment Physical therapy You will be given a prescription for physical therapy or occupational therapy at your first post-operative appointment. Typically, patients start therapy within 1 week of surgery Wound care and showering We will inspect your wound at your first post-operative visit, and may do a dressing change at that time. Most patients will be in a water-proof dressing that is removed 14 days after surgery. It is normal to see some dried blood on the dressing. Do not remove your dressing, paper strips or sutures yourself unless you are given permission. Showering is allowed the day after surgery. Do not scrub or remove any dressings. The wound should not be submerged underwater (i.e. in a bathtub or pool) until 4 weeks after surgery LILLIAM stockings If you were given white stockings, these are to be worn at all times except to shower (on both legs) for the first 2 weeks after surgery. Driving You may not drive while taking narcotic pain medication or while in a cast, splint, sling or brace. You, the patient, need to make the final determination about when you are safe to drive, however, the earliest you may consider driving after surgery is below: Hand/Wrist/Elbow Surgery: 3 days Shoulder Surgery: 2 weeks Hip,/Knee/Ankle Surgery: 4 weeks Fracture repair: 6 weeks Return to Work Your return to work depends on what surgery was done and what type of work you do. Please bring any paperwork your employer needs completed to your first post-operative visit. Also, bring a description of your job duties, as this helps us to understand what risks you may face at work. Travel Avoid long distance travel (greater than 1 hour) in airplanes and cars for the first 6 weeks after surgery. If you must travel, you need to have a Doppler ultrasound done before you travel to rule out a blood clot in your legs. Follow-up You should have a follow-up appointment already scheduled 1-2 days after surgery. If not, please contact our office to make this appointment before you leave the hospital. When to call the office It is normal to have swelling and bruising in the limb that was operated on. This will improve with time. It is also normal to have fevers for the first 2 days after surgery. Reasons you should call your doctor include: Uncontrolled pain; Nausea, vomiting, or constipation that does not improve with medication; Fevers over 101.5, chills, sweats; Drainage or bleeding from the wound; Foul odor; Spreading areas of redness; Any other concerns. Contact Information Please call Dr. Berry's office at [phone] with any concerns. Pending Studies at Discharge: No Stand-Alone Forms: [facility] Medications and DC Order Prescriptions: New acetaminophen [Tylenol Extra Strength] 500 mg Tablet 1,000 mg PO Q8 30 Days Qty: 180 0RF oxycodone 5 mg Tablet 5 - 10 mg PO Q4H MDD Max 6/day PRN (Reason: Postoperative pain control) Qty: 28 0RF diclofenac sodium 75 mg tablet,delayed release (DR/EC) 75 mg PO BID 30 Days Qty: 60 1RF Continued Glucosamine Complex-MSM Capsule 1 cap PO BID Zyrtec 10 mg Tablet,Disintegrating 10 mg PO QAM ascorbic acid (vitamin C) 1,000 mg Capsule, Extended Release 1 cap PO DAILY pravastatin 20 mg Tablet 20 mg PO QPM Ozempic 0.25 mg or 0.5 mg (2 mg/3 mL) Pen Injector 2 mg SUBCUT WK Patient Comments: mondays > last dose 10/07/25 lisinopril 20 mg Tablet 20 mg PO PM metoprolol succinate 25 mg Tablet Extended Release 24 Hr 25 mg PO PM metformin 850 mg Tablet 850 mg PO BID Changed aspirin 81 mg Tablet,Delayed Release (Dr/Ec) 81 mg PO BID Qty: 0 0RF Admission Data Admit Date/Time: 10/17/25 12:26 Attending Provider: Ziggy Berry Admit Provider: Ziggy Berry Primary Care Provider: Robert Juares Other Providers: [employer],[facility]
[2025-10-18] MEDS ORDERED: CeleBREX 200 MG CAP PO SCH (21:00)
[2025-10-20] MEDS ORDERED: Scopolamine REMOVE TRANSDERM PATCH ONE (08:00)
== END 2025-10-18 10:29 | disposition home health service (06) ==
LOC: ASU 08:34 → 3E 08:34